=== PATIENT | female | born 1965 | race Caucasian/White ===

== ENCOUNTER 2016-08-07 13:27 | Outpatient (RCR) | payer OTHER ==
[~2016-08-07 13:27] MED LIST: AC325T PO; ALPR.25T PO; ALPR.5T PO; ALPR1TAB2 PO; ANTI-DEPRESSANT; ARIP10TA2 PO; BACL20TA PO; BENZ200C25 PO; CEFD300C3 PO; CITA20TA4 PO; CPR500T PO; CYCL10TA9 PO; DOXY100C2 PO; DULO60CA6 PO; FLT05NA16 NSEACH; FLUT16SP22 NS; GBPN100C PO; GBPN300C PO; HYDR-1231 PO; HYDR-3720 PO; HYDR1TAB PO; IBUP800T26 PO; LRT10T PO; MECL12.579 PO; MIRT15TA6 PO; NAPR-243 PO; OMEP20TA2 PO; OMG1KC PO; OXC10TCR PO; OXYC-471 PO; PANT40SU PO; PRD20T PO; PROP10TA8 PO; QTP100T PO; SOFO400T PO; TAMO20TA2 PO; TIZA2CAP PO; VENL37.563 PO; [UNRECOGNIZED DRUG - CODE] PO
--- OUTSIDE RECORDS SUMMARY | 2016-08-07 13:31 | XMS REPORT | Continuity of Care Document ---
Author Author [facility] Organization [facility] Address Unknown Phone Unavailable Care Team Providers Care Ic Designer Custom Name Role Phone [facility] Insurance Providers Payer Name Policy Number Subscriber Name Relationship [facility] [employer] [id number] Tita Harden 16 Self / Same As Patient Advance Directives Directive Response Recorded Date/Time Advance Directives No 06/04/14 1:34pm Health Care Power of Palliative Care Specialist No 06/04/14 1:34pm Organ Donor No 06/04/14 1:34pm Resuscitation Status Full Code 06/04/14 1:34pm Problems Medical Problems Problem Onset Date Status drainage from right breast lumpectomy incision Unknown Active Diarrhea Unknown Active Fracture of fifth metatarsal bone of left foot Unknown Active Encounter for medication refill Unknown Active Medications Medication Dose Route Sig Days/Qty Instructions Order Date Discontinued Date Status Meclizine Hcl (Antivert) 1 - 2 Each PO TID - QID PRN 30 Qty 07/29/11 08/02/11 Discontinued Omeprazole 20 Mg PO DAILY 09/17/11 01/22/13 Discontinued Gabapentin 100 Mg PO BEDTIME 09/18/11 06/09/12 Discontinued Meclizine Hcl (Antivert) 1 Each PO NEEDED 09/18/11 10/04/12 Discontinued [Anti-Depressant] DAILY 01/03/12 06/09/12 Discontinued Aripiprazole 10 Mg PO DAILY 06/09/12 10/04/12 Discontinued Fish Oil 1,000 Mg PO TWICE A DAY 06/09/12 10/04/12 Discontinued Propranolol Hcl 10 Mg PO 06/10/12 10/04/12 Discontinued Alprazolam 1 Tab PO THREE TIMES A DAY 10/04/12 08/11/13 Discontinued Doxycycline Hyclate (Vibramycin) 1 Each PO TWICE A DAY 10 Days 01/22/13 Discontinued Prednisone 40 Mg PO DAILY 5 Days 10/04/12 01/22/13 Discontinued Benzonatate (Tessalon Perles) 1 Each PO Q8HR PRN 30 Qty 10/04/1201/22 Discontinued Citalopram Hydrobromide 20 Mg PO D 01/22/13 08/11/13 Discontinued Quetiapine Fumarate 1 Tab PO BEDTIME 02/14/13 08/11/13 Discontinued Duloxetine HCl 1 Each PO DAILY 02/14/13 08/11/13 Discontinued Cyclobenzaprine HCl (Flexeril) 1 Each PO Q8HR PRN 15 Qty FOR MUSCLE SPASMS 02/14/13 08/11/13 Discontinued Naproxen 1 Each PO TID PRN 20 Qty 02/14/13 08/11/13 Discontinued Gabapentin 300 Mg PO TWICE A DAY 10 Qty As needed for neuropathy or paresthesias 02/25/13 08/11/13 Discontinued Tizanidine HCl 2 Mg PO DAILY 08/11/13 09/28/13 Discontinued Acetaminophen 325 Mg PO NEEDED 08/11/13 09/28/13 Discontinued Acetaminophen/Hydrocodone Bitart 1-2 Each PO Q4 - 6H PRN PAIN IN TO [facility]. 08/15/13 09/28/13 Discontinued Cefdinir (Omnicef) 1 Each PO TWICE A DAY 14 Qty 08/26/13 09/28/13 Discontinued Cyclobenzaprine HCl (Flexeril) 10 Mg PO THREE TIMES A DAY 09/28/13 Active Alprazolam 1 Mg PO THREE TIMES A DAY 09/28/13 Active Loratadine 10 Mg PO DAILY 09/28/13 Active Fluticasone Propionate 16 Gm NS 09/28/13 09/28/13 Discontinued Ibuprofen (Motrin) 800 Mg PO q8h PRN PAIN 03/07/14 Active Baclofen (Lioresal) 20 Mg PO THREE TIMES A DAY 03/07/14 Active Tamoxifen Citrate 20 Mg PO DAILY 03/07/14 Active Fluticasone Propionate 1 [place] NSEACH DAILY 03/07/14 Active Venlafaxine Hcl 37.5 Mg PO TWICE A DAY 03/07/14 03/20/14 Discontinued Mirtazapine (Remeron) 0.5-1 Tab PO BEDTIME 06/01/14 Active Hydrocodone Bit/Acetaminophen 1-2 Tab PO EVERY 6 HOURS PRN PAIN 15 Qty 06/01/14 Active Acetaminophen/Hydrocodone Bitart ([place]) 1 Each PO Q4-6HR PRN PAIN 20 Qty 06/04/14 Active Social History Social History Problem Response Recorded Date/Time Alcohol Use Denies Use 06/04/2014 1:34pm Recreational Drug Use N SMOKER-PACK PER DAY 06/04/2014 1:34pm Smoking Status Current Everyday Smoker 06/04/2014 1:34pm Query Response Start Date Stop Date Smoking Status Current Everyday Smoker Hospital Discharge Instructions No hospital discharge instructions. Plan of Care No plan of care. Functional Status No functional status results. Allergies, Adverse Reactions, Alerts Allergen Type Severity Reaction Status Last Updated morphine Allergy Severe LARGE HIVES ON LEFT FOREARM. ITCHING OF NOSE. Active 08/15/13 Codeine Allergy Unknown Active 03/12/14 Immunizations Name Given Type Date of Pneumonia Vaccine 10/04/10 Historical Date of Influenza Vaccine 07/04/11 Historical Vital Signs Acute Vital Signs Vital Response Date/Time Temperature (Fahrenheit) 99.4 degrees F (97.6 - 99.5) Temperature (Calculated Celsius) 37.84476 degrees C (36.4 - 37.5) Temperature Source Temporal Pulse Rate (adult) 88 bpm (60 - 90) Respiratory Rate 20 bpm (12 - 24) O2 Sat by Pulse Oximetry 94 % (88 - 100) Blood Pressure 119/80 mm Hg Pain Pain Intensity 3 Height (Feet) 5 feet Height (Inches) 7 inches Height (Calculated Centimeters) 170.976664 cm Weight (Pounds) 185 pounds Weight (Calculated Kilograms) 83.920704 kilograms Calculated BMI 28.97 Results Test Source Date Result Interp. Ref. Range Comments Acetaminophen Screen August 02, 2011 10:57am NEGATIVE - APAP= ACETAMINOPHEN/PARACETAMOL Alanine Aminotransferase (ALT/SGPT) March 28, 2014 1:30pm 69 U/L H 30-65 Albumin March 28, 2014 1:30pm 3.5 G/DL N 3.4-5.0 Alkaline Phosphatase March 28, 2014 1:30pm 95 U/L N 50-136 Alpha Fetoprotein January 08, 2014 3:37pm 3.3 NG/ML - INTERPRETIVE DATAPatients who have received Oncoscinct CR/OV tracer may develop human anti-mouse antibodies that cause interference in this test and cause falsely elevated results. Please advise laboratory if this is a possibility so that alternate testing procedures may be used. Aspartate Amino Transf (AST/SGOT) March 28, 2014 1:30pm 52 U/L H 15-37 BUN/Creatinine Ratio March 28, 2014 1:30pm 10 - Band Neutrophils September 28, 2013 6:17pm 2 % - Basophils # (Auto) March 28, 2014 1:30pm 0.0 10^3/uL N 0.0-0.1 Basophils % (Manual) September 28, 2013 6:17pm 0 % - Basophils (%) (Auto) March 28, 2014 1:30pm 1 % N 0-10 Blood Urea Nitrogen March 28, 2014 1:30pm 8 MG/DL N 7-18 Calcium Level March 28, 2014 1:30pm 8.9 MG/DL N 8.5-10.1 Carbon Dioxide Level March 28, 2014 1:30pm 24 MMOL/L N 21-32 Chloride Level March 28, 2014 1:30pm 104 MMOL/L N 101-110 Cholesterol Level May 13, 2012 12:15pm 213 MG/DL H -200 PATIENT HAS ALREADY COLLECTE DRUG SCREEN Creatinine March 28, 2014 1:30pm 0.8 MG/DL N 0.6-1.3 D-Dimer August 02, 2011 11:08am 6.64 UG/ML H 0.00-0.49 Eosinophils # (Auto) March 28, 2014 1:30pm 0.1 10^3/uL N 0.0-0.3 Eosinophils % (Manual) September 28, 2013 6:17pm 1 % - Eosinophils (%) (Auto) March 28, 2014 1:30pm 2 % N 0-10 Glucose Level March 28, 2014 1:30pm 89 MG/DL N 74-106 HDL Cholesterol May 13, 2012 12:15pm 57 MG/DL N 35-60 PATIENT HAS ALREADY COLLECTE DRUG SCREEN Hematocrit March 28, 2014 1:30pm 44 % N 35-52 Hemoglobin March 28, 2014 1:30pm 15.3 G/DL N 11.5-16.0 Hepatitis A IgM Antibody September 13, 2013 2:53pm NR - If the result of the HEP A IgM antibody is Equivocal, thetest should be repeated in 1-2 weeks. (05-01-13) Hepatitis B Core IgM Antibody September 13, 2013 2:53pm NR - If the result of the HEP B Core IgM antibody is Equivocal,the test should be repeated in 1-2 weeks. (05-01-13) Hepatitis B Surface Antigen September 13, 2013 2:53pm NR - BLOOD IN LAB / SHORT DRAW GOLD AND EXTRA RED TOP IN LAB! Hepatitis C Antibody September 13, 2013 2:53pm REACTIVE H - THIS IS A REPORTABLE DISEASE. POSITIVE RESULTS WILL BEREPORTED TO THE [facility]. IT SHOULD BE NOTED THAT THE ASSAY PERFOMANCE CHARACTERISTICS OF THIS ASSAY HAVE NOT BEEN ESTABLISHED FOR IMMUNOCOMPROMISED PATIENTS OR ON CORD BLOOD, SPECIMENS, INFANTS OR CHILDREN (<12 YEARS OF AGE). Iron Level May 13, 2012 12:15pm 117 UG/DL N 50-175 PATIENT HAS ALREADY COLLECTE DRUG SCREEN LDL Cholesterol May 13, 2012 12:15pm 110 MG/DL N 0-129 PATIENT HAS ALREADY COLLECTE DRUG SCREEN Lymphocytes # (Auto) March 28, 2014 1:30pm 1.6 X 10^3 N 1.0-4.0 Lymphocytes % (Manual) September 28, 2013 6:17pm 11 % - Lymphocytes (%) (Auto) March 28, 2014 1:30pm 24 % N 12-44 Mean Corpuscular Hemoglobin March 28, 2014 1:30pm 30 PG N 25-34 Mean Corpuscular Hemoglobin Concent March 28, 2014 1:30pm 35 G/DL N 32- 36 Mean Corpuscular Volume March 28, 2014 1:30pm 87 FL N 80-99 Mean Platelet Volume March 28, 2014 1:30pm 9.6 FL N 7.4-10.4 Metamyelocytes % September 28, 2013 6:17pm 1 % - Methadone Level May 13, 2012 12:15pm NEG - Monocytes # (Auto) March 28, 2014 1:30pm 0.8 X 10^3 N 0.0-1.0 Monocytes % (Manual) September 28, 2013 6:17pm 4 % - Monocytes (%) (Auto) March 28, 2014 1:30pm 12 % N 0-12 Neutrophils # (Auto) March 28, 2014 1:30pm 4.1 X 10^3 N 1.8-7.8 Neutrophils % (Manual) September 28, 2013 6:17pm 73 % - Neutrophils (%) (Auto) March 28, 2014 1:30pm 62 % N 42-75 Opiates Screen May 13, 2012 12:15pm NEG - Platelet Count March 28, 2014 1:30pm 321 10^3/uL N 130-400 Potassium Level March 28, 2014 1:30pm 4.1 MMOL/L N 3.6-5.0 Reactive Lymphocytes September 28, 2013 6:17pm 8 % - Red Blood Count March 28, 2014 1:30pm 5.12 10^6/uL N 4.35-5.85 Red Cell Distribution Width March 28, 2014 1:30pm 13.9 % N 10.0-14.5 Sodium Level March 28, 2014 1:30pm 136 MMOL/L N 135-145 TSH [place] Testing May 13, 2012 12:15pm 1.05 UIU/ML N 0.34-5.60 PATIENT HAS ALREADY COLLECTE DRUG SCREEN Thyroid Stimulating Hormone (TSH) August 02, 2011 11:08am 0.90 UIU/ML N 0.34-5.60 Total Bilirubin March 28, 2014 1:30pm 0.3 MG/DL N 0.0-1.0 Total Creatine Kinase October 04, 2012 3:38pm 55 U/L N 1-159 Total Protein March 28, 2014 1:30pm 8.2 G/DL N 6.4-8.2 Toxic Granulation September 28, 2013 6:17pm 1+ - Triglycerides Level May 13, 2012 12:15pm 230 MG/DL H 30.0-150.0 PATIENT HAS ALREADY COLLECTE DRUG SCREEN Troponin I August 02, 2011 11:08am < 0.10 NG/ML 0.00-0.10 Ur Tricyclic Antidepressants Screen August 02, 2011 10:57am NEGATIVE - Urine Acetaminophen Level May 13, 2012 12:15pm NEG - Urine Amphetamines Screen May 13, 2012 12:15pm NEG - Urine Bacteria August 02, 2011 10:57am NONE - Has specimen been collected/obtained? YSpecimen Description CLEAN CATCH Urine Barbiturates Screen May 13, 2012 12:15pm NEG - Urine Benzodiazepines Screen May 13, 2012 12:15pm POSITIVE H - CONFIRMATORY TESTING WILL BE PERFORMED ONLY UPON REQUEST.IF A CONFIRMATION IS NEEDED, PLESE ORDER THE FOLLOWING TEST. "BENZO CON" OR CONTACT LAB. FOOTNOTE ADDED ON [id number] AT 2128 BY [facility] Urine Bilirubin August 02, 2011 10:57am NEGATIVE - Has specimen been collected/obtained? YSpecimen Description CLEAN CATCH Urine Casts August 02, 2011 10:57am NONE - Has specimen been collected/obtained? YSpecimen Description CLEAN CATCH Urine Clarity August 02, 2011 10:57am CLEAR - Has specimen been collected/obtained? YSpecimen Description CLEAN CATCH Urine Cocaine Screen May 13, 2012 12:15pm NEG - Urine Color August 02, 2011 10:57am YELLOW - Has specimen been collected/obtained? YSpecimen Description CLEAN CATCH Urine Crystals August 02, 2011 10:57am NONE - Has specimen been collected/obtained? YSpecimen Description CLEAN CATCH Urine Culture Indicated August 02, 2011 10:57am NO - Has specimen been collected/obtained? YSpecimen Description CLEAN CATCH Urine Drug Screen Other May 13, 2012 12:15pm POSITIVE H - Interpretative data is available online at:[email or web address] Enter Test Number:[id number] URINE DRUG SCREEN FOR MEDICAL PURPOSES ONLY. Urine Glucose (UA) August 02, 2011 10:57am NEGATIVE - Has specimen been collected/obtained? YSpecimen Description CLEAN CATCH Urine Ketones August 02, 2011 10:57am NEGATIVE - Has specimen been collected/obtained? YSpecimen Description CLEAN CATCH Urine Leukocyte Esterase August 02, 2011 10:57am NEGATIVE - Has specimen been collected/obtained? YSpecimen Description CLEAN CATCH Urine Marijuana (THC) May 13, 2012 12:15pm POSITIVE H - CONFIRMATORY TESTING WILL BE PERFORMED ONLY UPON REQUEST.IF A CONFIRMATION IS NEEDED, PLESE ORDER THE FOLLOWING TEST. "THC GC/MS" OR CONTACT LAB. FOOTNOTE [facility] [id number] [facility] INTERPRETIVE DATA No normal range is available for random urine creatinine. Values are affected by hydration and kidney function of the patient. Urine Methamphetamines Screen August 02, 2011 10:57am NEGATIVE - Urine Mucus August 02, 2011 10:57am NEGATIVE - Has specimen been collected/obtained? YSpecimen Description CLEAN CATCH Urine Nitrite August 02, 2011 10:57am NEGATIVE - Has specimen been collected/obtained? YSpecimen Description CLEAN CATCH Urine Opiates Screen August 02, 2011 10:57am NEGATIVE - Urine Phencyclidine (PCP) Level May 13, 2012 12:15pm NEG - Urine Phencyclidine Screen August 02, 2011 10:57am NEGATIVE - Phencyclidine testing by this method can showcross-reactivity with several common medications such as venlafaxine, dextromethorphan, and diphenhydramine. Submission of any positive sample for confirmatory testing is recommended. Urine Propoxyphene Screen May 13, 2012 12:15pm NEG - Urine Protein August 02, 2011 10:57am NEGATIVE - Has specimen been collected/obtained? YSpecimen Description CLEAN CATCH Urine RBC August 02, 2011 10:57am NONE /HPF - Has specimen been collected/obtained? YSpecimen Description CLEAN CATCH Urine Specific [place] August 02, 2011 10:57am 1.010 L - Has specimen been collected/obtained? YSpecimen Description CLEAN CATCH Urine Squamous Epithelial Cells August 02, 2011 10:57am 5-10 - Has specimen been collected/obtained? YSpecimen Description CLEAN CATCH Urine Urobilinogen August 02, 2011 10:57am NORMAL MG/DL - Has specimen been collected/obtained? YSpecimen Description CLEAN CATCH Urine WBC August 02, 2011 10:57am NONE /HPF - Has specimen been collected/obtained? YSpecimen Description CLEAN CATCH Urine pH August 02, 2011 10:57am 7.0 - Has specimen been collected/ obtained? YSpecimen Description CLEAN CATCH VLDL Cholesterol May 13, 2012 12:15pm 46 MG/DL H 5-40 PATIENT HAS ALREADY COLLECTE DRUG SCREEN Vitamin B12 Level May 13, 2012 12:15pm 352 PG/ML - Vitamin D 25-Hydroxy May 13, 2012 12:15pm 14 L NG/ML - White Blood Count March 28, 2014 1:30pm 6.6 10^3/uL N 4.3-11.0 Urine Creatinine (Tox) May 13, 2012 12:15pm 19 MG/DL - LOW URINE CREATININE OR SPECIFIC GRAVITY (1.003) MAY BE SEENIN SPECIMENS A RESULT OF TAMPERING, DILUTION OR DELIBERATE OVER HYDRATION BY SUBJECT OR WHEN NON-URINE HAS BEEN SUBSTITUTED. SINCE DILUTE SPECIMENS MAY BE ASSOCIATED WITH FALSE NEGATIVE RESULTS, A REPEAT STUDY MAY BE INDICATED. FOOTNOTE ADDED ON [id number] AT 2128 BY [facility] Estimat Glomerular Filtration Rate March 28, 2014 1:30pm > 60 - GFR INTERPRETIVE DATA UNITS FOR ESTIMATED GFR (eGFR): mL/min/1.73 M2 REFERENCE RANGE FOR ESTIMATED GFR (eGFR) eGFR NORMAL eGFR >60 MODERATELY DECREASED eGFR 30-59 SEVERLY DECREASED eGFR 15-29 KIDNEY FAILURE <15 (OR DIALYSIS) Urine Methadone Screen August 02, 2011 10:57am NEGATIVE - Urine Ethyl Alcohol Screen May 13, 2012 12:15pm NEG - Interpretative data is available online at:[email or web address] Enter Test Number:[id number] Urine Salicylate Screen May 13, 2012 12:15pm NEG - Urine Cannabinoids Screen August 02, 2011 10:57am POSITIVE H - Hepatitis C Antibody Index September 13, 2013 2:53pm >11.00 INDEX H - HCV INDEX INTERPRETIVE DATAINDEX PERCENT CONFIRMED POSITIVE 1.0 - 3.99 25% 4.0 - 7.99 77% 8.0 - 10.99 73% >11.0 99.9% Positive results with an index of >11.0 are accepted by CDC as having anti-HCV status with no need of confirmation. Urine RBC (Auto) August 02, 2011 10:57am NEGATIVE - Has specimen been collected/obtained? YSpecimen Description CLEAN CATCH MRSA Screen Nasal March 23, 2014 7:55am MRSA not isolated Urine Culture Urine-Clean Catch December 28, 2010 1:34pm Procedures No known history of procedures. Encounters Encounter Location Date/Time Departed Emergency Room Via [facility] 06/04/14 12:56pm Departed Emergency Room Via [facility] 06/01/14 9:06pm Discharged Recurring Via [facility] 05/09/14 1:19pm Recent Diagnosis
== END 2016-11-05 | disposition home or self-care (01) ==
LOC: ONC 13:27
PROVIDERS: ATTEND Internal Medicine Hematology & Oncology
DX: C50.911 Malignant neoplasm of unspecified site of right female breast (principal); B18.2 Chronic viral hepatitis C; F41.9 Anxiety disorder, unspecified; F17.210 Nicotine dependence, cigarettes, uncomplicated; Z79.810 Long term (current) use of selective estrogen receptor modulators (SERMs); Z17.0 Estrogen receptor positive status [ER+]; Z45.2 Encounter for adjustment and management of vascular access device
CPT/HCPCS: 96523

== ENCOUNTER 2016-12-07 14:49 | Outpatient (RCR) | payer OTHER ==
--- OUTSIDE RECORDS SUMMARY | 2016-11-18 13:05 | XMS REPORT | Continuity of Care Document ---
Author Author [facility] Organization [facility] Address Unknown Phone Unavailable Care Team Providers Care Desulfurizer Machine Name Role Phone [facility] PCP Insurance Providers Payer Name Policy Number Subscriber Name Relationship [facility] [employer] [id number] Tita Harden 16 Self / Same As Patient Advance Directives Directive Response Recorded Date/Time Advance Directives No 06/04/14 1:34pm Health Care Power of Specimen Processor No 06/04/14 1:34pm Organ Donor No 06/04/14 [...] Q4 - 6H PRN PAIN IN TO [facility]. 08/15/13 09/28/13 Discontinued Cefdinir (Omnicef) 1 [...] PO DAILY 03/07/14 Active Fluticasone Propionate 1 [place] NSEACH DAILY 03/07/14 Active Venlafaxine Hcl 37.5 Mg PO TWICE A DAY 03/07/14 03/20/14 Discontinued Mirtazapine (Remeron) 0.5-1 Tab PO BEDTIME 06/01/14 Active Hydrocodone Bit/Acetaminophen 1-2 Tab PO EVERY 6 HOURS PRN PAIN 15 Qty 06/01/14 Active Acetaminophen/Hydrocodone Bitart ([place]) 1 Each PO Q4-6HR PRN PAIN 20 [...] F (97.6 - 99.5) Temperature (Calculated Celsius) 37.13883 degrees C (36.4 - 37.5) Temperature Source Temporal Pulse Rate (adult) 88 bpm (60 - 90) Respiratory Rate 20 bpm (12 - 24) O2 Sat by Pulse Oximetry 94 % (88 - 100) Blood Pressure 119/80 mm Hg Pain Pain Intensity 3 Height (Feet) 5 feet Height (Inches) 7 inches Height (Calculated Centimeters) 170.116796 cm Weight (Pounds) 185 pounds Weight (Calculated Kilograms) 83.424953 kilograms Calculated BMI 28.97 Results Test Source [...] DISEASE. POSITIVE RESULTS WILL BEREPORTED TO THE [facility]ALTH DEPARTMENT. IT SHOULD BE NOTED THAT [...] 2014 1:30pm 136 MMOL/L N 135-145 TSH [place] Testing May 13, 2012 12:15pm 1.05 UIU/ML [...] CON" OR CONTACT LAB. FOOTNOTE ADDED ON [id number] AT 2128 BY [facility] Urine Bilirubin August 02, 2011 10:57am NEGATIVE [...] H - Interpretative data is available online at:[email or web address] Enter Test Number:[id number] URINE DRUG SCREEN FOR MEDICAL PURPOSES ONLY. [...] GC/MS" OR CONTACT LAB. FOOT[facility] [id number] [facility] INTERPRETIVE DATA No normal range [...] collected/obtained? YSpecimen Description CLEAN CATCH Urine Specific [place] August 02, 2011 10:57am 1.010 L - [...] STUDY MAY BE INDICATED. FOOTNOTE ADDED ON [id number] AT 2128 BY [facility] Estimat Glomerular Filtration Rate March 28, 2014 [...] NEG - Interpretative data is available online at:[email or web address] Enter Test Number:[id number] Urine Salicylate Screen May 13, 2012 12:15pm [...] Encounter Location Date/Time Departed Emergency Room Via [facility] 06/04/14 12:56pm Departed Emergency Room Via [facility] 06/01/14 9:06pm Discharged Recurring Via [facility] 05/09/14 1:19pm Recent Diagnosis
[2016-12-07 15:29] LABS: BASOPHILS % (AUTO) 0 % (0-10); EOSINOPHILS # (AUTO) 0.1 10^3/uL (0.0-0.3); EOSINOPHILS % (AUTO) 1 % (0-10); LYMPHOCYTES # (AUTO) 2.3 X 10^3 (1.0-4.0); LYMPHOCYTES % (AUTO) 27 % (12-44); MEAN CORPUSCULAR HEMOGLOBIN 29 PG (25-34); MEAN CORPUSCULAR HGB CONC 34 G/DL (32-36); MEAN CORPUSCULAR VOLUME 87 FL (80-99); MEAN PLATELET VOLUME 9.4 FL (7.4-10.4); MONOCYTES # (AUTO) 0.7 X 10^3 (0.0-1.0); MONOCYTES % (AUTO) 8 % (0-12); NEUTROPHILS # (AUTO) 5.4 X 10^3 (1.8-7.8); NEUTROPHILS % (AUTO) 64 % (42-75); PLATELET COUNT 372 10^3/uL (130-400); RED BLOOD COUNT 4.66 10^6/uL (4.35-5.85); RED CELL DISTRIBUTION WIDTH 14.9 % (10.0-14.5); WHITE BLOOD COUNT 8.5 10^3/uL (4.3-11.0)
[2016-12-07 16:23] LABS: ALANINE AMINOTRANSFERASE 13 U/L (0-55); ANION GAP 8 MMOL/L (5-14); ASPARTATE AMINO TRANSFERASE 15 U/L (5-34); BILIRUBIN,TOTAL 0.3 MG/DL (0.1-1.0); BLOOD UREA NITROGEN 8 MG/DL (7-18); BUN/CREATININE RATIO 11; CARBON DIOXIDE 23 MMOL/L (21-32); CHLORIDE 109 MMOL/L (98-107); CREATININE SERUM 0.76 MG/DL (0.60-1.30); GFR ESTIMATED > 60; GLUCOSE 86 MG/DL (70-105); POTASSIUM 3.9 MMOL/L (3.6-5.0); SODIUM 140 MMOL/L (135-145); TOTAL PROTEIN 7.1 G/DL (6.4-8.2)
[2016-12-23] MEDS ORDERED: TRAM50TA2 PO (09:45)
== END 2017-02-16 | disposition home or self-care (01) ==
LOC: ONC 14:49
PROVIDERS: ATTEND Internal Medicine Hematology & Oncology
DX: C50.911 Malignant neoplasm of unspecified site of right female breast (principal); B18.2 Chronic viral hepatitis C; F41.9 Anxiety disorder, unspecified; F17.210 Nicotine dependence, cigarettes, uncomplicated; Z79.810 Long term (current) use of selective estrogen receptor modulators (SERMs); Z17.0 Estrogen receptor positive status [ER+]; Z45.2 Encounter for adjustment and management of vascular access device
CPT/HCPCS: 36591; 80053; 85025; 96523; 99213

== ENCOUNTER 2016-12-17 05:41 | Outpatient (CLI) | payer OTHER ==
[~2016-12-17] VITALS: Ht 167.6 cm; Wt 81.6 kg
--- OUTSIDE RECORDS SUMMARY | 2016-12-17 05:46 | XMS REPORT | Continuity of Care Document ---
Author Author [facility] Organization [facility] Address Unknown Phone Unavailable Care Team Providers Care Radio Station Engineer Name Role Phone [facility] PCP Insurance Providers Payer Name Policy Number Subscriber Name Relationship [facility] [employer] [id number] Tita Harden 16 Self / Same As Patient Advance Directives Directive Response Recorded Date/Time Advance Directives No 06/04/14 1:34pm Health Care Power of Yarn Inspector No 06/04/14 1:34pm Organ Donor No 06/04/14 [...] Q4 - 6H PRN PAIN IN TO [facility]. 08/15/13 09/28/13 Discontinued Cefdinir (Omnicef) [...] PO DAILY 03/07/14 Active Fluticasone Propionate 1 [place] NSEACH DAILY 03/07/14 Active Venlafaxine Hcl 37.5 Mg PO TWICE A DAY 03/07/14 03/20/14 Discontinued Mirtazapine (Remeron) 0.5-1 Tab PO BEDTIME 06/01/14 Active Hydrocodone Bit/Acetaminophen 1-2 Tab PO EVERY 6 HOURS PRN PAIN 15 Qty 06/01/14 Active Acetaminophen/Hydrocodone Bitart ([place]) 1 Each PO Q4-6HR PRN PAIN 20 [...] F (97.6 - 99.5) Temperature (Calculated Celsius) 37.30165 degrees C (36.4 - 37.5) Temperature Source Temporal Pulse Rate (adult) 88 bpm (60 - 90) Respiratory Rate 20 bpm (12 - 24) O2 Sat by Pulse Oximetry 94 % (88 - 100) Blood Pressure 119/80 mm Hg Pain Pain Intensity 3 Height (Feet) 5 feet Height (Inches) 7 inches Height (Calculated Centimeters) 170.191759 cm Weight (Pounds) 185 pounds Weight (Calculated Kilograms) 83.269084 kilograms Calculated BMI 28.97 Results Test Source [...] DISEASE. POSITIVE RESULTS WILL BEREPORTED TO THE [facility]ALTH DEPARTMENT. IT SHOULD BE [...] 2014 1:30pm 136 MMOL/L N 135-145 TSH [place] Testing May 13, 2012 12:15pm 1.05 UIU/ML [...] CON" OR CONTACT LAB. FOOTNOTE ADDED ON [id number] AT 2128 BY [facility] Urine Bilirubin August 02, 2011 10:57am NEGATIVE [...] H - Interpretative data is available online at:[email or web address] Enter Test Number:[id number] URINE DRUG SCREEN FOR MEDICAL PURPOSES ONLY. [...] GC/MS" OR CONTACT LAB. FO[facility] [id number] [facility]PRETIVE DATA No normal [...] collected/obtained? YSpecimen Description CLEAN CATCH Urine Specific [place] August 02, 2011 10:57am 1.010 L - [...] STUDY MAY BE INDICATED. FOOTNOTE ADDED ON [id number] AT 2128 BY [facility] Estimat Glomerular Filtration Rate March 28, 2014 [...] NEG - Interpretative data is available online at:[email or web address] Enter Test Number:[id number] Urine Salicylate Screen May 13, 2012 12:15pm [...] Encounter Location Date/Time Departed Emergency Room Via [facility] 06/04/14 12:56pm Departed Emergency Room Via [facility] 06/01/14 9:06pm Discharged Recurring Via [facility] 05/09/14 1:19pm Recent Diagnosis
== END 2016-12-17 11:08 ==
LOC: PREOP 05:41
PROVIDERS: ATTEND Surgery
DX: Z01.818 Encounter for other preprocedural examination (principal); C50.911 Malignant neoplasm of unspecified site of right female breast

== ENCOUNTER 2016-12-23 07:51 | Day surgery (SDC) | payer OTHER ==
[~2016-12-23] VITALS: Ht 167.6 cm; Wt 81.6 kg
--- NOTE | 2016-12-23 08:01 | History & Physicial ---
History of Present Illness History of Present Illness Reason for visit/HPI For removal of infusaport Date of Admission I consulted on this patient on 12/23/16 07:59 Attending Physician Bry Acosta MD Admitting Physician Zena Sanchez DO Consult Allergies and Home Medications Allergies Coded Allergies: morphine (Unverified Allergy, Severe, LARGE HIVES ON LEFT FOREARM. ITCHING OF NOSE., 08/15/13) IV MORPHINE WAS GIVEN TO PATIENT FOR PAIN AT IV SITE IN PTS LEFT HAND. 12 MINUTES AFTER IV MORPHINE WAS GIVEN PT C/O HER NOSE ITCHING. THIS RN NOTICED PT HAD REDNESS AT IV SITE AND HAD 5 LARGE HIVES ON LEFT FOREARM. PT DENIED ANY SHORTNESS OF BREATH OR DIFFICULTY BREATHING. NO HIVES OR RASH NOTED ANY WHERE ELSE ON PTS BODY. NO ITCHING NOTED ANYWHERE ELSE BUT PTS NOSE. THIS RN NOTIFIED ANESTHESIA. 25MG BENADRYL GIVEN PO PER ANESTHESIA'S ORDERS DUE TO PTS IV INFILTRATING AND ANESTHESIA WAS UNABLE TO RESTART IV. 10 MINUTES AFTER PO BENADRYL WAS GIVEN PTS HIVES WERE ABOUT GONE AND PTS STATED HER NOSE DID NOT ITCH. codeine (Verified Allergy, Unknown, 03/12/14) Home Medications Tamoxifen Citrate 20 Mg Tablet, 20 MG PO DAILY, (Reported) Past Hzxfugx-Pdpqen-Guwkqy Hx Patient Social History Employed/Student: unemployed Smoking Status: Current Everyday Smoker Type Used: Cigarettes Recent Foreign Travel: No Contact w/other who traveled: No Recent Hopitalizations: No Immunizations Up To Date Date of Pneumonia Vaccine: Oct 04, 2010 Date of Influenza Vaccine: Jul 04, 2011 Seasonal Allergies Seasonal Allergies: Yes Surgeries HX Surgeries: Yes (RIGHT BREAST LUMPECTOMY, RIGHT KNEE SCOPE, port) Surgeries: Breast, Hysterectomy, Lumpectomy Respiratory Hx Respiratory Disorders: Yes Cardiovascular Hx Cardiovascular Disorders: No Neurological Hx Neurological Disorders: No Reproductive System Hx Reproductive Disorders: No Sexually Transmitted Disease: Yes (HPV) HIV/AIDS: No Female 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 PSYCHOLOGIST CLINICAL Hx: Hysterectomy Genitourinary Hx Genitourinary Disorders: Yes (HX KIDNEY INFECTIONS) Gastrointestinal Hx Gastrointestinal Disorders: Yes Gastrointestinal Disorders: Gastroesophageal Reflux Musculoskeletal Hx Musculoskeletal Disorders: Yes (NECK) Musculoskeletal Disorders: Chronic Back Pain Endocrine Hx Endocrine Disorders: No HEENT HX ENT Disorders: Yes (FALSE TEETH, READING GLASSES) Loss of Vision: Bilateral Hearing Impairment: Denies Cancer Hx Cancer: Yes (HPV) Cancer: Breast, Uterine Psychosocial Hx Psychiatric Problems: Yes (TAKES XANAX) Behavioral Health Disorders: Anxiety, Depression Integumentary HX Skin/Integumentary Disorder: No Blood Transfusions Hx Blood Disorders: No Adverse Reaction to a Blood Tr: No Constitutional: no symptoms reported EENTM: no symptoms reported Respiratory: no symptoms reported Cardiovascular: no symptoms reported Gastrointestinal: see HPI Genitourinary: see HPI Musculoskeletal: see HPI Physical Exam Vital Signs Capillary Refill : General Appearance: No Apparent Distress HEENT: TMs Normal Neck: Normal Inspection Respiratory: Lungs Clear Cardiovascular: Regular Rate, Rhythm Gastrointestinal: No Organomegaly, Non Tender, Soft Skin: Warm/Dry Comments Post-op changes over the right breast Assessment/Plan Assessment and Plan R breast carcinoma. For removal of infusaport Problems: BRY ACOSTA MD Dec 23, 2016 8:01 am
--- NOTE | 2016-12-23 08:02 | Progress Note-Pre Operative ---
Pre-Operative Progress Note H&P Reviewed The H&P was reviewed, patient examined and no changes noted. Date H&P Reviewed: Dec 23, 2016 Time H&P Reviewed: 08:01 Pre-Operative Diagnosis: Treated right breast carcinoma BRY ACOSTA MD Dec 23, 2016 8:02 am
[2016-12-23] MEDS ORDERED: NS (IVPB) 50 ML ONE (08:10)
[2016-12-23] MEDS ORDERED: ceFAZolin 1,000 MG (ANCEF) VIAL ONE (08:10)
[2016-12-23] MEDS ORDERED: ceFAZolin 1 GM/NS 50 ML IVPB IV ONE ×2 (08:30)
[2016-12-23] MEDS ORDERED: BUP/EPI 0.25% 1:200,000 (MARCAINE) 30 ML VIAL ONE (09:07)
[2016-12-23] MEDS ORDERED: proPOfol 200 MG/20 ML (DIPRIVAN) VIAL IV ONE (09:13)
[2016-12-23] MEDS ORDERED: LIDOCAINE PF 2% 10 ML (XYLOCAINE) AMP ONE (09:13)
[2016-12-23] MEDS ORDERED: MIDAZOLAM 2 MG/2 ML (VERSED) VIAL ONE ×2 (09:13→09:30)
[2016-12-23] MEDS ORDERED: LACTATED RINGERS 1,000 ML IV PRN (09:15)
[2016-12-23 09:29] VITALS: BP 134/96
--- NOTE | 2016-12-23 09:44 | Progress Note-Post Operative ---
Post-Operative Progess Note Pre-Operative Diagnosis Treated right breast carcinoma Post-Operative Diagnosis SAME Post-Op Procedure Note Date of Procedure: Dec 23, 2016 Name of Procedure: removal of Bvmoab-c-Ypbx Anesthesia Type sedation with local BRY ACOSTA MD Dec 23, 2016 9:44 am
[2016-12-23] MEDS ORDERED: TRAM50TA2 PO (09:45)
--- NOTE | 2016-12-23 09:46 | Discharge Inst-Simple/Standard ---
Discharge Inst-Standard Discharge Medications New, Converted or Re-Newed RX: RX on Chart Patient Instructions/Follow Up Plan of Care/Instructions/FU: follow-up if needed Activity as Tolerated: Yes Discharge Diet: No Restrictions BRY ACOSTA MD Dec 23, 2016 9:46 am
--- NOTE | 2016-12-23 09:58 | PROCEDURE REPORT ---
PROCEDURE PHYSICIAN: BRY ACOSTA DATE OF PROCEDURE: 12/23/2016 PREOPERATIVE DIAGNOSES: 1. Treated right breast cancer. 2. Unused Fblpgt-i-Nwei. POSTOPERATIVE DIAGNOSES: 1. Treated right breast cancer. 2. Unused Sqoikm-m-Thqq. OPERATION: Removal of Rapbfz-y-Hxis. SURGEON: Dr. Acosta. ANESTHESIA: Sedation with local. BLOOD LOSS: Minimal. FLUIDS: 400 mL of crystalloids. TYPE OF WOUND: Type I (clean wound). INDICATION FOR THE PROCEDURE: This lady has completed adjuvant chemotherapy following lumpectomy for breast carcinoma. After an adequate discussion with her oncologist, it was felt reasonable to remove the Vwlclq-c-Yrzj. Informed consent was obtained after reviewing the procedure in detail. DESCRIPTION OF PROCEDURE: She was placed supine on the operative table and our anesthesiologist administered sedation, monitoring her vital signs. A gram of Ancef was administered intravenously as prophylaxis against wound infection. Right infraclavicular area was prepared and draped in the usual sterile manner. Local anesthesia was achieved using 0.25% Marcaine with epinephrine. A second incision was made along the previous scar and the Nvdhql-i-Wwdx removed without risking air embolism. The incision was then closed using 3-0 Vicryl for the subcutaneous tissue and 4-0 Vicryl for skin, in a subcuticular fashion. She tolerated the procedure well and was taken back to the nursing area in a stable condition. Job ID: [id number] Dictated Date: 12/23/2016 09:43:40 Caddy Date: 12/23/2016 09:52:46 / leandra ADHIKARI
[2016-12-23] MEDS ORDERED: ONDANSETRON 4 MG/2 ML (SDV) Z0FRAN IVP PRN (10:00)
[2016-12-23] MEDS ORDERED: fentaNYL INJECTION 100 MCG/2 ML AMP IVP PRN (10:00)
[2016-12-23 10:10] VITALS: BP 129/76
[2016-12-23 10:40] VITALS: BP 124/76
--- OUTSIDE RECORDS SUMMARY | 2016-12-27 04:41 | XMS REPORT | Continuity of Care Document ---
Author Author [facility] Organization [facility] Address Unknown Phone Unavailable Allergies Active Description Code Type Severity Reaction Onset Reported/Identified Relationship to Patient Clinical Status Yes morphine [id number] Drug Allergy Severe LARGE HIVES ON 08/15/2013 Yes codeine [id number] Drug Allergy Unknown N/A 03/12/2014 Medications Problems Date Dx Coded Attending Type Code Diagnosis Diagnosed By 12/28/2010 Ot 590.10 AC PYELONEPHRITIS NOS 12/28/2010 Ot 787.03 VOMITING ALONE 07/29/2011 Ot 780.2 SYNCOPE AND COLLAPSE 07/29/2011 Ot 780.4 DIZZINESS AND GIDDINESS 08/04/2011 Ot 305.1 TOBACCO USE DISORDER 08/04/2011 Ot 305.20 CANNABIS ABUSE-UNSPEC 08/04/2011 Ot 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 BILTRAL ARTERY OCCLUSION WO CEREBRA 08/04/2011 Ot 780.2 SYNCOPE AND COLLAPSE 08/04/2011 Ot 784.0 HEADACHE 08/04/2011 Ot 790.99 BLOOD EXAM - OTH NONSPECIFIC FINDINGS 10/04/2012 Ot 466.0 ACUTE BRONCHITIS 10/04/2012 Ot 784.0 HEADACHE 10/04/2012 Ot 786.2 COUGH 01/23/2013 Ot 844.9 SPRAIN OF KNEE LEG NOS 01/23/2013 Ot 959.7 LOWER LEG INJURY NOS 01/23/2013 Ot E000.8 OTHER EXTERNAL CAUSE STATUS 01/23/2013 Ot E849.0 ACCIDENT IN HOME 01/23/2013 Ot E881.0 FALL FROM LADDER 02/14/2013 DEANNE CASTELLANOS DO Ot 723.1 CERVICALGIA 02/14/2013 DEANNE CASTELLANOS DO Ot 840.9 SPRAIN SHOULDER/ARM NOS 02/14/2013 DEANNE CASTELLANOS DO Ot E000.8 OTHER EXTERNAL CAUSE STATUS 02/14/2013 DEANNE CASTELLANOS DO Ot E029.9 OTHER ACTIVITY 02/14/2013 DEANNE CASTELLANOS DO Ot E927.8 OTH OVEREXERTION STRENUOUS REPETITIV 02/25/2013 LUDMILA COLBY, DEMETRIA Temo Ot 782.0 SKIN SENSATION DISTURB 08/15/2013 BRY ACOSTA MD Ot 174.9 MALIGN NEOPL BREAST NOS 08/26/2013 ERIKA DERAS MD Ot V10.3 HX OF BREAST MALIGNANCY 08/26/2013 ERIKA DERAS MD Ot V45.71 ACQUIRED ABSENCE OF BREAST AND NIPPLE 08/26/2013 ERIKA DERAS MD Ot V58.31 ENCOUNTER FOR CHANGE OR REMOVAL OF SURGI 09/28/2013 MILTON QUEEN VACUUM COOKER OPERATOR Ot 787.03 VOMITING ALONE 09/28/2013 MILTON QUEEN VACUUM COOKER OPERATOR Ot 787.91 DIARRHEA 12/12/2013 NICOLE AVILA MD Ot 174.9 MALIGN NEOPL BREAST NOS 12/12/2013 NICOLE AVILA MD Ot 300.00 ANXIETY STATE NOS 12/12/2013 NICOLE AVILA MD Ot 784.0 HEADACHE 12/12/2013 NICOLE AVILA MD Ot 786.2 COUGH 12/12/2013 NICOLE AVILA MD Ot V58.0 ENCOUNTER FOR RADIOTHERAPY 03/12/2014 BRY ACOSTA MD Ot 211.3 BENIGN NEOPLASM LG BOWEL 03/12/2014 BRY ACOSTA MD Ot 562.10 DIVERTICULOSIS COLON (W/O MENT OF HEMORR 03/12/2014 BRY ACOSTA MD Ot V16.0 FAMILY HX-GI MALIGNANCY 03/12/2014 BRY ACOSTA MD Ot V76.51 SCREEN MAL NEOP-COLON 03/13/2014 NICOLE AVILA MD Ot 174.9 MALIGN NEOPL BREAST NOS 03/13/2014 NICOLE AVILA MD Ot V58.0 ENCOUNTER FOR RADIOTHERAPY 03/23/2014 BRY ACOSTA MD Ot 459.81 VENOUS INSUFFICIENCY NOS 06/01/2014 UMANG MCKNIGHT MD Ot 825.25 FX METATARSAL-CLOSED 06/01/2014 UMANG MCKNIGHT MD Ot 959.7 LOWER LEG INJURY NOS 06/01/2014 UMANG MCKNIGHT MD Ot E000.8 OTHER EXTERNAL CAUSE STATUS 06/01/2014 UMANG MCKNIGHT MD Ot E927.0 OVEREXERTION FROM SUDDEN STRENUOUS MOVEM 06/04/2014 MILTON QUEEN VACUUM COOKER OPERATOR Ot V68.1 ISSUE REPEAT PRESCRIPT 06/26/2014 NICOLE AVILA MD Ot 174.9 MALIGN NEOPL BREAST NOS 06/26/2014 NICOLE AVILA MD Ot V58.81 FIT/ADJ VASCULAR CATHETER 08/28/2014 NICOLE AVILA MD Ot 174.9 09/18/2014 NICOLE AVILA MD Ot 174.9 09/25/2014 NICOLE AVILA MD Ot 174.9 MALIGN NEOPL BREAST NOS 09/25/2014 NICOLE AVILA MD Ot V58.81 FIT/ADJ VASCULAR CATHETER 10/18/2014 NICOLE AVILA MD Ot 174.9 10/25/2014 NICOLE AVILA MD Ot 174.9 10/26/2014 NICOLE AVILA MD Ot 174.9 11/19/2014 NICOLE AVILA MD Ot 070.54 11/19/2014 NICOLE AVILA MD Ot 174.9 11/19/2014 NICOLE AVILA MD Ot 300.00 11/19/2014 NICOLE AVILA MD Ot 305.1 11/19/2014 NICOLE AVILA MD Ot V58.69 01/13/2015 DEMETRIA URIAS Ot 715.36 01/13/2015 DEMETRIA URIAS Ot 719.06 01/13/2015 DEMETRIA URIAS Ot 727.51 01/23/2015 NICOLE AVILA MD Ot 070.54 CHRONIC HEPATITIS C W/O HEPATIC COMA 01/23/2015 NICOLE AVILA MD Ot 174.9 MALIGN NEOPL BREAST NOS 01/23/2015 NICOLE AVILA MD Ot 300.00 ANXIETY STATE NOS 01/23/2015 NICOLE AVILA MD Ot 305.1 TOBACCO USE DISORDER 01/23/2015 NICOLE AVILA MD Ot V58.69 OTH MED,LT,CURRENT USE 01/23/2015 NICOLE AVILA MD Ot V58.81 FIT/ADJ VASCULAR CATHETER 01/30/2015 DEMETRIA URIAS M Ot 715.36 01/30/2015 DEMETRIA URIAS Ot 719.06 01/30/2015 DEMETRIA URIAS Ot 727.51 02/07/2015 NICOLE AVILA MD Ot 070.54 02/07/2015 NICOLE AVILA MD Ot 174.9 02/07/2015 NICOLE AVILA MD Ot 300.00 02/07/2015 NICOLE AVILA MD Ot 305.1 02/07/2015 AUSTIN COLBY NICOLE Willis Ot V58.69 02/07/2015 AUSTIN COLBY, NICOLE Willis Ot 070.54 02/07/2015 AUSTIN COLBY, NICOLE Willis Ot 174.9 02/07/2015 AUSTIN COLBY, NICOLE Willis Ot 300.00 02/07/2015 AUSTIN COLBY, NICOLE Willis Ot 305.1 02/07/2015 AUSTIN COLBY, NICOLE Willis Ot V58.69 02/14/2015 AUSTIN COLBY, NICOLE Willis Ot 070.54 02/14/2015 AUSTIN COLBY, NICOLE Willis Ot 174.9 02/14/2015 AUSTIN COLBY, NICOLE Willis Ot 300.00 02/14/2015 AUSTIN COLBY, NICOLE Willis Ot 305.1 02/14/2015 AUSTIN COLBY, NICOLE Willis Ot V58.69 02/15/2015 AUSTIN COLBY, NICOLE Willis Ot 070.54 02/15/2015 AUSTIN COLBY, NICOLE Willis Ot 174.9 02/15/2015 AUSTIN COLBY, NICOLE Willis Ot 300.00 02/15/2015 AUSTIN COLBY, NICOLE Willis Ot 305.1 02/15/2015 AUSTIN COLBY, NICOLE Willis Ot V58.69 03/15/2015 ROBYN CUEVA Ot 070.70 03/26/2015 AUSTIN COLBY, NICOLE Willis Ot 070.54 03/26/2015 AUSTIN COLBY, NICOLE Willis Ot 174.9 03/26/2015 AUSTIN COLBY, NICOLE Willis Ot 300.00 03/26/2015 AUSTIN COLBY, NICOLE Willis Ot 305.1 03/26/2015 AUSTIN COLBY, NICOLE Willis Ot V58.69 2015 AUSTIN COLBY, NICOLE Willis Ot 070.54 CHRONIC HEPATITIS C W/O HEPATIC COMA 2015 AUSTIN COLBY, NICOLE Willis Ot 174.9 MALIGN NEOPL BREAST NOS 2015 AUSTIN COLBY, NICOLE Willis Ot 300.00 ANXIETY STATE NOS 2015 NICOLE AVILA MD Ot 305.1 TOBACCO USE DISORDER 2015 AUSTIN COLBY, NICOLE Willis Ot V58.69 OTH MED,LT,CURRENT USE 2015 NICOLE AVILA MD Ot V58.81 FIT/ADJ VASCULAR CATHETER 05/22/2015 BIRDIE SANTANA MD Ot 305.1 TOBACCO USE DISORDER 05/22/2015 BIRDIE SANTANA MD Ot 309.81 POSTTRAUMATIC STRESS DISORDER 05/22/2015 BIRDIE SANTANA MD Ot 733.92 CHONDROMALACIA 05/22/2015 BIRDIE SANTANA MD Ot 836.0 TEAR MED MENISC KNEE-CUR 05/22/2015 BIRDIE SANTANA MD Ot 836.1 TEAR LAT MENISC KNEE-CUR 05/22/2015 BIRDIE SANTANA MD Ot V10.3 HX OF BREAST MALIGNANCY 05/22/2015 BIRDIE SANTANA MD Ot V57.1 PHYSICAL THERAPY NEC 05/22/2015 BIRDIE SANTANA MD Ot V58.69 OT MED,LT,CURRENT USE 06/07/2015 AUSTIN COLBY, NICOLE Willis Ot 070.54 06/07/2015 AUSTIN COLBY, NICOLE Willis Ot 174.9 06/07/2015 AUSTIN COLBY, NICOLE Willis Ot 300.00 06/07/2015 AUSTIN COLBY, NICOLE Willis Ot 305.1 06/07/2015 NICOLE AVILA MD Ot V58.69 06/14/2015 NICOLE AVILA MD Ot 070.54 06/14/2015 AUSTIN COLBY, NICOLE Willis Ot 174.9 06/14/2015 AUSTIN COLBY, NICOLE Willis Ot 300.00 06/14/2015 NICOLE AVILA MD Ot 305.1 06/14/2015 NICOLE AVILA MD Ot V58.69 07/03/2015 AUSTIN COLBY, NICOLE Willis Ot 070.54 CHRONIC HEPATITIS C W/O HEPATIC COMA 07/03/2015 AUSTIN COLBY, NICOLE Willis Ot 174.9 MALIGN NEOPL BREAST NOS 07/03/2015 AUSTIN COLBY, NICOLE Willis Ot 300.00 ANXIETY STATE NOS 07/03/2015 AUSTIN COLBY, NICOLE Willis Ot 305.1 TOBACCO USE DISORDER 07/03/2015 AUSTIN COLBY, NICOLE Willis Ot V58.69 OT MED,LT,CURRENT USE 08/14/2015 NICOLE AVILA MD Ot 070.54 08/14/2015 NICOLE AVILA MD Ot 174.9 08/14/2015 AUSTIN COLBY, NICOLE Willis Ot 300.00 08/14/2015 NICOLE AVILA MD Ot 305.1 08/14/2015 NICOLE AVILA MD Ot V58.69 08/19/2015 Ot 780.2 08/19/2015 Ot 311 08/19/2015 Ot V58.69 08/19/2015 LILIANE BASILIO SAP SECURITY CONSULTANT Ot 719.41 08/19/2015 HANS GUERIN SAP SECURITY CONSULTANT Ot 611.72 08/19/2015 KARLA COLBY, BRY M Ot 305.1 08/19/2015 KARLA COLBY, BRY M Ot 611.72 08/19/2015 KARLA COLBY, BRY M Ot 174.9 08/19/2015 KARLA COLBY, BRY M Ot V72.83 08/19/2015 KARLA COLBY, BRY M Ot V74.8 08/19/2015 AUSTIN COLBY, NICOLE K Ot 174.9 08/19/2015 AUSTIN COLBY, NICOLE Willis Ot 610.0 08/19/2015 KARLA COLBY, BRY M Ot V72.84 08/19/2015 KARLA COLBY, BRY M Ot 459.81 08/19/2015 KARLA COLBY, BRY M Ot V72.84 08/19/2015 AUSTIN COLBY, NICOLE K Ot 174.9 08/19/2015 OH PA, DEMETRIA M Ot 715.36 08/19/2015 [place] PA, DEMETRIA M Ot 719.06 08/19/2015 [place] PA, DEMETRIA M Ot 727.51 08/19/2015 ROBYN CUEVA Ot 070.70 08/19/2015 ESTHER COLBY, BIRDIE P Ot 717.7 08/19/2015 ESTHER COLBY, BIRDIE P Ot 836.0 08/19/2015 ESTHER COLBY, BIRDIE P Ot E000.8 08/19/2015 ESTHER COLBY, BIRDIE P Ot E928.9 08/19/2015 ESTHER COLBY, BIRDIE P Ot V72.84 08/19/2015 ESTHER COLBY, BIRDIE P Ot V74.8 08/19/2015 AUSTIN COLBY, NICOLE Willis Ot 070.54 08/19/2015 AUSTIN COLBY, NICOLE Willis Ot 174.9 08/19/2015 AUSTIN COLBY, NICOLE Willis Ot 300.00 08/19/2015 AUSTIN COLBY, NICOLE Willis Ot 305.1 08/19/2015 AUSTIN COLBY, NICOLE Willis Ot V58.69 08/20/2015 LUPE TANG SAP SECURITY CONSULTANT Ot B18.2 08/20/2015 LUPE TANG SAP SECURITY CONSULTANT Ot B18.2 08/23/2015 LUPE TANG SAP SECURITY CONSULTANT Ot B18.2 09/03/2015 LUPE TANG SAP SECURITY CONSULTANT Ot B18.2 09/20/2015 AUSTIN COLBY, NICOLE Willis Ot 070.54 09/20/2015 NICOLE AVILA MD Ot 174.9 09/20/2015 NICOLE AVILA MD Ot 300.00 09/20/2015 AUSTIN COLBY, NICOLE Willis Ot 305.1 09/20/2015 AUSTIN COLBY NICOLE Lazaro Ot V58.69 10/01/2015 AUSTIN COLBY NICOLE Lazaro Ot C50.911 10/01/2015 NICOLE AVILA MD Ot Z45.2 10/14/2015 NICOLE AVILA MD Ot C50.911 10/14/2015 NICOLE AVILA MD Ot Z45.2 10/30/2015 NICOLE AVILA MD Ot C50.911 10/30/2015 NICOLE AVILA MD Ot Z12.31 11/12/2015 NICOLE AVILA MD, Ot C50.911 MALIGNANT NEOPLASM OF UNSP SITE OF RIGHT 11/12/2015 NICOLE AVILA MD, Ot Z45.2 ENCOUNTER FOR ADJUSTMENT AND MANAGEMENT 11/19/2015 NICOLE AVILA MD Ot C50.911 11/19/2015 NICOLE AVILA MD, Ot Z45.2 11/27/2015 AUSTIN COLBY NICOLE Lazaro Ot C50.911 11/27/2015 AUSTIN COLBY NICOLE Lazaro Ot Z45.2 11/29/2015 LUPE TANG Ot B18.2 02/24/2016 NICOLE AVILA MD Ot B18.2 CHRONIC VIRAL HEPATITIS C 02/24/2016 AUSTIN COLBY NICOLE Lazaro [place] C50.911 MALIGNANT NEOPLASM OF UNSP SITE OF RIGHT 02/24/2016 NICOLE AVILA MD Ot F17.210 NICOTINE DEPENDENCE, CIGARETTES, UNCOMPL 02/24/2016 AUSTIN COLBY NICOLE Lazaro Ot F41.9 ANXIETY DISORDER, UNSPECIFIED 02/24/2016 AUSTIN COLBY NICOLE Lazaro Ot Z17.0 ESTROGEN RECEPTOR POSITIVE STATUS [ER+] 02/24/2016 AUSTIN COLBY NICOLE Lazaro Ot Z45.2 ENCOUNTER FOR ADJUSTMENT AND MANAGEMENT 02/24/2016 NICOLE AVILA MD Ot Z79.810 LNG TRM (CRNT) USE OF SLCTV ESTROG CIGAR BANDER HAND 03/05/2016 Ot 780.2 SYNCOPE AND COLLAPSE 03/05/2016 Ot 311 DEPRESSIVE DISORDER NEC 03/05/2016 Ot V58.69 OTH MED,LT,CURRENT USE 03/05/2016 LILIANE BASILIO [facility] Ot 719.41 JOINT PAIN-SHLDER 03/05/2016 HANS GUERIN SAP SECURITY CONSULTANT Ot 611.72 LUMP OR MASS IN BREAST 03/05/2016 KARLA COLBY, BRY Lopez Ot 305.1 TOBACCO USE DISORDER 03/05/2016 KARLA COLBY, BRY Lopez Ot 611.72 LUMP OR MASS IN BREAST 03/05/2016 KARLA COLBY, BRY Lopez Ot 174.9 MALIGN NEOPL BREAST NOS 03/05/2016 KARLA COLBY, BRY Lopez Ot V72.83 EXAM PRE-OPERATIVE NEC 03/05/2016 KARLA COLBY, BRY Lopez Ot V74.8 SCREEN-BACTERIAL DIS NEC 03/05/2016 NICOLE AVILA MD Ot 174.9 MALIGN NEOPL BREAST NOS 03/05/2016 NICOLE AVILA MD Ot 610.0 SOLITARY CYST OF BREAST 03/05/2016 KARLA COLBY, BRY Lopez Ot V72.84 EXAM PRE-OPERATIVE NOS 03/05/2016 KARLA COLBY, BRY Lopez Ot 459.81 VENOUS INSUFFICIENCY NOS 03/05/2016 KARLA COLBY, BRY Lopez Ot V72.84 EXAM PRE-OPERATIVE NOS 03/05/2016 AUSTIN COLBY, NICOLE Willis Ot 174.9 MALIGN NEOPL BREAST NOS 03/05/2016 DEMETRIA URIAS Ot 715.36 LOC OSTEOARTH NOS-L/LEG 03/05/2016 DEMETRIA URIAS Ot 719.06 JOINT EFFUSION-L/LEG 03/05/2016 DEMETRIA URIAS Ot 727.51 POPLITEAL SYNOVIAL CYST 03/05/2016 ROBYN CUEVA Ot 070.70 UNSPECIFIED VIRAL HEPATITIS C WITHOUT HE 03/05/2016 BIRDIE SANTANA MD Ot 717.7 CHONDROMALACIA PATELLAE 03/05/2016 BIRDIE SANTANA MD Ot 836.0 TEAR MED MENISC KNEE-CUR 03/05/2016 BIRDIE SANTANA MD Ot E000.8 OTHER EXTERNAL CAUSE STATUS 03/05/2016 BIRDIE SANTANA MD Ot E928.9 ACCIDENT NOS 03/05/2016 BIRDIE SANTANA MD Ot V72.84 EXAM PRE-OPERATIVE NOS 03/05/2016 BIRDIE SANTANA MD Ot V74.8 SCREEN-BACTERIAL DIS NEC 03/05/2016 LUPE TANG SAP SECURITY CONSULTANT Ot B18.2 CHRONIC VIRAL HEPATITIS C 03/05/2016 NICOLE AVILA MD, Ot C50.911 MALIGNANT NEOPLASM OF UNSP SITE OF RIGHT 03/05/2016 NICOLE AVILA MD Ot Z12.31 ENCNTR SCREEN MAMMOGRAM FOR MALIGNANT NE 03/05/2016 LUPE TANG Ot B18.2 CHRONIC VIRAL HEPATITIS C 03/05/2016 NICOLE AVILA MD, Ot B18.2 CHRONIC VIRAL HEPATITIS C 03/05/2016 NICOLE AVILA MD, Ot C50.911 MALIGNANT NEOPLASM OF UNSP SITE OF RIGHT 03/05/2016 NICOLE AVILA MD Ot F17.210 NICOTINE DEPENDENCE, CIGARETTES, UNCOMPL 03/05/2016 NICOLE AVILA MD, Ot F41.9 ANXIETY DISORDER, UNSPECIFIED 03/05/2016 NICOLE AVILA MD, Ot Z17.0 ESTROGEN RECEPTOR POSITIVE STATUS [ER+] 03/05/2016 NICOLE AVILA MD, Ot Z79.810 LNG TRM (CRNT) USE OF SLCTV ESTROG CIGAR BANDER HAND 03/24/2016 NICOLE AVILA MD, Ot B18.2 CHRONIC VIRAL HEPATITIS C 03/24/2016 NICOLE AVILA MD, Ot C50.911 MALIGNANT NEOPLASM OF UNSP SITE OF RIGHT 03/24/2016 NICOLE AVILA MD Ot F17.210 NICOTINE DEPENDENCE, CIGARETTES, UNCOMPL 03/24/2016 NICOLE AVILA MD, Ot F41.9 ANXIETY DISORDER, UNSPECIFIED 03/24/2016 NICOLE AVILA MD, Ot Z17.0 ESTROGEN RECEPTOR POSITIVE STATUS [ER+] 03/24/2016 NICOLE AVILA MD, Ot Z79.810 LNG TRM (CRNT) USE OF SLCTV ESTROG CIGAR BANDER HAND 04/14/2016 NICOLE AVILA MD Ot B18.2 CHRONIC VIRAL HEPATITIS C 04/14/2016 NICOLE AVILA MD, Ot C50.911 MALIGNANT NEOPLASM OF UNSP SITE OF RIGHT 04/14/2016 NICOLE AVILA MD Ot F17.210 NICOTINE DEPENDENCE, CIGARETTES, UNCOMPL 04/14/2016 NICOLE AVILA MD, Ot F41.9 ANXIETY DISORDER, UNSPECIFIED 04/14/2016 NICOLE AVILA MD Ot Z17.0 ESTROGEN RECEPTOR POSITIVE STATUS [ER+] 04/14/2016 NICOLE AVILA MD, Ot Z79.810 LNG TRM (CRNT) USE OF SLCTV ESTROG CIGAR BANDER HAND 07/09/2016 NICOLE AVILA MD Ot B18.2 CHRONIC VIRAL HEPATITIS C 07/09/2016 NICOLE AVILA MD, Ot C50.911 MALIGNANT NEOPLASM OF UNSP SITE OF RIGHT 07/09/2016 NICOLE AVILA MD, Ot F17.210 NICOTINE DEPENDENCE, CIGARETTES, UNCOMPL 07/09/2016 NICOLE AVILA MD, Ot F41.9 ANXIETY DISORDER, UNSPECIFIED 07/09/2016 NICOLE AVILA MD Ot Z17.0 ESTROGEN RECEPTOR POSITIVE STATUS [ER+] 07/09/2016 NICOLE AVILA MD, Ot Z45.2 ENCOUNTER FOR ADJUSTMENT AND MANAGEMENT 07/09/2016 NICOLE AVILA MD, Ot Z79.810 LNG TRM (CRNT) USE OF SLCTV ESTROG CIGAR BANDER HAND 07/10/2016 NICOLE AVILA MD, Ot B18.2 CHRONIC VIRAL HEPATITIS C 07/10/2016 NICOLE AVILA MD, Ot C50.911 MALIGNANT NEOPLASM OF UNSP SITE OF RIGHT 07/10/2016 NICOLE AVILA MD, Ot F17.210 NICOTINE DEPENDENCE, CIGARETTES, UNCOMPL 07/10/2016 NICOLE AVILA MD, Ot F41.9 ANXIETY DISORDER, UNSPECIFIED 07/10/2016 NICOLE AVILA MD, Ot Z17.0 ESTROGEN RECEPTOR POSITIVE STATUS [ER+] 07/10/2016 NICOLE AVILA MD Ot Z45.2 ENCOUNTER FOR ADJUSTMENT AND MANAGEMENT 07/10/2016 NICOLE AVILA MD, Ot Z79.810 LNG TRM (CRNT) USE OF SLCTV ESTROG CIGAR BANDER HAND 07/15/2016 NICOLE AVILA MD, Ot B18.2 CHRONIC VIRAL HEPATITIS C 07/15/2016 NICOLE AVILA MD, Ot C50.911 MALIGNANT NEOPLASM OF UNSP SITE OF RIGHT 07/15/2016 NICOLE AVILA MD, Ot F17.210 NICOTINE DEPENDENCE, CIGARETTES, UNCOMPL 07/15/2016 NICOLE AVILA MD, Ot F41.9 ANXIETY DISORDER, UNSPECIFIED 07/15/2016 NICOLE AVILA MD, Ot Z17.0 ESTROGEN RECEPTOR POSITIVE STATUS [ER+] 07/15/2016 NICOLE AVILA MD Ot Z45.2 ENCOUNTER FOR ADJUSTMENT AND MANAGEMENT 07/15/2016 NICOLE AVILA MD, Ot Z79.810 LNG TRM (CRNT) USE OF SLCTV ESTROG CIGAR BANDER HAND 08/10/2016 NICOLE AVILA MD, Ot B18.2 CHRONIC VIRAL HEPATITIS C 08/10/2016 NICOLE AVILA MD, Ot C50.911 MALIGNANT NEOPLASM OF UNSP SITE OF RIGHT 08/10/2016 AUSTIN COLBY, NICOLE Willis Ot F17.210 NICOTINE DEPENDENCE, CIGARETTES, UNCOMPL 08/10/2016 AUSTIN COLBY, NICOLE Willis Ot F41.9 ANXIETY DISORDER, UNSPECIFIED 08/10/2016 NICOLE AVILA MD Ot Z17.0 ESTROGEN RECEPTOR POSITIVE STATUS [ER+] 08/10/2016 NICOLE AVILA MD Ot Z79.810 LNG TRM (CRNT) USE OF SLCTV ESTROG CIGAR BANDER HAND 08/12/2016 Ot 780.2 SYNCOPE AND COLLAPSE 08/12/2016 Ot 311 DEPRESSIVE DISORDER NEC 08/12/2016 Ot V58.69 OTH MED,LT,CURRENT USE 08/12/2016 LILIANE BASILIO SAP SECURITY CONSULTANT Ot 719.41 JOINT PAIN-SHLDER 08/12/2016 HANS GUERIN SAP SECURITY CONSULTANT Ot 611.72 LUMP OR MASS IN BREAST 08/12/2016 KARLA COLBY, BRY Lopez Ot 305.1 TOBACCO USE DISORDER 08/12/2016 KARLA COLBY, BRY Lopez Ot 611.72 LUMP OR MASS IN BREAST 08/12/2016 KARLA COLBY, BRY Lopez Ot 174.9 MALIGN NEOPL BREAST NOS 08/12/2016 KARLA COLBY, BRY Lopez Ot V72.83 EXAM PRE-OPERATIVE NEC 08/12/2016 KARLA COLBY, BRY Lopze Ot V74.8 SCREEN-BACTERIAL DIS NEC 08/12/2016 NICOLE AVILA MD Ot 174.9 MALIGN NEOPL BREAST NOS 08/12/2016 NICOLE AVILA MD Ot 610.0 SOLITARY CYST OF BREAST 08/12/2016 KARLA COLBY, BRY Lopez Ot V72.84 EXAM PRE-OPERATIVE NOS 08/12/2016 BRY ACOSTA MD Ot 459.81 VENOUS INSUFFICIENCY NOS 08/12/2016 BRY ACOSTA MD Ot V72.84 EXAM PRE-OPERATIVE NOS 08/12/2016 NICOLE AVILA MD Ot 174.9 MALIGN NEOPL BREAST NOS 08/12/2016 DEMETRIA URIAS Ot 715.36 LOC OSTEOARTH NOS-L/LEG 08/12/2016 DEMETRIA URIAS Ot 719.06 JOINT EFFUSION-L/LEG 08/12/2016 DEMETRIA URIAS Ot 727.51 POPLITEAL SYNOVIAL CYST 08/12/2016 ROBYN CUEVA Ot 070.70 UNSPECIFIED VIRAL HEPATITIS C WITHOUT HE 08/12/2016 BIRDIE SANTANA MD Ot 717.7 CHONDROMALACIA PATELLAE 08/12/2016 BIRDIE SANTANA MD Ot 836.0 TEAR MED MENISC KNEE-CUR 08/12/2016 BIRDIE SANTANA MD Ot E000.8 OTHER EXTERNAL CAUSE STATUS 08/12/2016 BIRDIE SANTANA MD Ot E928.9 ACCIDENT NOS 08/12/2016 BIRDIE SANTANA MD Ot V72.84 EXAM PRE-OPERATIVE NOS 08/12/2016 BIRDIE SANTANA MD Ot V74.8 SCREEN-BACTERIAL DIS NEC 08/12/2016 LUPE TANG Ot B18.2 CHRONIC VIRAL HEPATITIS C 08/12/2016 NICOLE AVILA MD, Ot C50.911 MALIGNANT NEOPLASM OF UNSP SITE OF RIGHT 08/12/2016 NICOLE AVILA MD, Ot Z12.31 ENCNTR SCREEN MAMMOGRAM FOR MALIGNANT NE 08/12/2016 LUPE TANG Ot B18.2 CHRONIC VIRAL HEPATITIS C 08/12/2016 NICOLE AVILA MD, Ot B18.2 CHRONIC VIRAL HEPATITIS C 08/12/2016 NICOLE AVILA MD, Ot C50.911 MALIGNANT NEOPLASM OF UNSP SITE OF RIGHT 08/12/2016 NICOLE AVILA MD, Ot F17.210 NICOTINE DEPENDENCE, CIGARETTES, UNCOMPL 08/12/2016 NICOLE AVILA MD, Ot F41.9 ANXIETY DISORDER, UNSPECIFIED 08/12/2016 NICOLE AVILA MD, Ot Z17.0 ESTROGEN RECEPTOR POSITIVE STATUS [ER+] 08/12/2016 NICOLE AVILA MD, Ot Z45.2 ENCOUNTER FOR ADJUSTMENT AND MANAGEMENT 08/12/2016 NICOLE AVILA MD, Ot Z79.810 LNG TRM (CRNT) USE OF SLCTV ESTROG CIGAR BANDER HAND 08/12/2016 NICOLE AVILA MD, Ot B18.2 CHRONIC VIRAL HEPATITIS C 08/12/2016 NICOLE AVILA MD, Ot C50.911 MALIGNANT NEOPLASM OF UNSP SITE OF RIGHT 08/12/2016 NICOLE AVILA MD, Ot F17.210 NICOTINE DEPENDENCE, CIGARETTES, UNCOMPL 08/12/2016 NICOLE AVILA MD Ot F41.9 ANXIETY DISORDER, UNSPECIFIED 08/12/2016 NICOLE AVILA MD, Ot Z17.0 ESTROGEN RECEPTOR POSITIVE STATUS [ER+] 08/12/2016 NICOLE AVILA MD Ot Z45.2 ENCOUNTER FOR ADJUSTMENT AND MANAGEMENT 08/12/2016 NICOLE AVILA MD Ot Z79.810 LNG TRM (CRNT) USE OF SLCTV ESTROG CIGAR BANDER HAND 08/12/2016 LUPE TANG SAP SECURITY CONSULTANT Ot B18.2 CHRONIC VIRAL HEPATITIS C 08/12/2016 LUPE TANGP Ot B18.2 CHRONIC VIRAL HEPATITIS C 08/13/2016 NICOLE AVILA MD Ot B18.2 CHRONIC VIRAL HEPATITIS C 08/13/2016 NICOLE AVILA MD Ot C50.911 MALIGNANT NEOPLASM OF UNSP SITE OF RIGHT 08/13/2016 NICOLE AVILA MD Ot F17.210 NICOTINE DEPENDENCE, CIGARETTES, UNCOMPL 08/13/2016 NICOLE AVILA MD, Ot F41.9 ANXIETY DISORDER, UNSPECIFIED 08/13/2016 NICOLE AVILA MD Ot Z17.0 ESTROGEN RECEPTOR POSITIVE STATUS [ER+] 08/13/2016 NICOLE AVILA MD Ot Z45.2 ENCOUNTER FOR ADJUSTMENT AND MANAGEMENT 08/13/2016 NICOLE AVILA MD Ot Z79.810 LNG TRM (CRNT) USE OF SLCTV ESTROG CIGAR BANDER HAND 08/26/2016 LUPE TANGP Ot B18.2 CHRONIC VIRAL HEPATITIS C 10/02/2016 MILTON QUEEN APRN Ot N39.0 URINARY TRACT INFECTION, SITE NOT SPECIF 10/02/2016 MILTON QUEEN APRN Ot N93.9 ABNORMAL UTERINE AND VAGINAL BLEEDING, U 10/02/2016 MILTON QUEEN APRN Ot Z79.899 OTHER [facility] (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 THERAPY 10/02/2016 MILTON QUEEN VACUUM COOKER OPERATOR Ot Z85.3 PERSONAL HISTORY OF MALIGNANT NEOPLASM O 10/02/2016 MILTON QUEEN VACUUM COOKER OPERATOR Ot 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 10/06/2016 MILTON QUEEN VACUUM COOKER OPERATOR Ot N39.0 URINARY TRACT INFECTION, SITE NOT SPECIF 10/06/2016 MILTON QUEEN VACUUM COOKER OPERATOR Ot N93.9 ABNORMAL UTERINE AND VAGINAL BLEEDING, U 10/06/2016 MILTON QUEEN VACUUM COOKER OPERATOR Ot Z79.899 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 (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 THERAPY 10/06/2016 MILTON QUEEN VACUUM COOKER OPERATOR Ot Z85.3 PERSONAL HISTORY OF MALIGNANT NEOPLASM O 10/06/2016 MILTON QUEEN VACUUM COOKER OPERATOR Ot 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 10/08/2016 MILTNO QUEEN VACUUM COOKER OPERATOR Ot N39.0 URINARY TRACT INFECTION, SITE NOT SPECIF 10/08/2016 MILTON QUEEN VACUUM COOKER OPERATOR Ot N93.9 ABNORMAL UTERINE AND VAGINAL BLEEDING, U 10/08/2016 MILTON QUEEN VACUUM COOKER OPERATOR Ot Z79.899 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[employer] (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 10/08/2016 MILTON QUEEN APRN Ot Z85.3 PERSONAL HISTORY OF MALIGNANT NEOPLASM O 10/08/2016 MILTON QUEEN VACUUM COOKER OPERATOR Ot 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 11/05/2016 NICOLE AVILA MD, Ot B18.2 CHRONIC VIRAL HEPATITIS C 11/05/2016 NICOLE AVILA MD, Ot C50.911 MALIGNANT NEOPLASM OF UNSP SITE OF RIGHT 11/05/2016 NICOLE AVILA MD, Ot F17.210 NICOTINE DEPENDENCE, CIGARETTES, UNCOMPL 11/05/2016 NICOLE AVILA MD, Ot F41.9 ANXIETY DISORDER, UNSPECIFIED 11/05/2016 NICOLE AVILA MD, Ot Z17.0 ESTROGEN RECEPTOR POSITIVE STATUS [ER+] 11/05/2016 NICOLE AVILA MD, Ot Z45.2 ENCOUNTER FOR ADJUSTMENT AND MANAGEMENT 11/05/2016 NICOLE AVILA MD, Ot Z79.810 LNG TRM (CRNT) USE OF SLCTV ESTROG CIGAR BANDER HAND 11/19/2016 NICOLE AVILA MD, Ot B18.2 CHRONIC VIRAL HEPATITIS C 11/19/2016 NICOLE AVILA MD, Ot C50.911 MALIGNANT NEOPLASM OF UNSP SITE OF RIGHT 11/19/2016 NICOLE AVILA MD, Ot F17.210 NICOTINE DEPENDENCE, CIGARETTES, UNCOMPL 11/19/2016 NICOLE AVILA MD, Ot F41.9 ANXIETY DISORDER, UNSPECIFIED 11/19/2016 NICOLE AVILA MD, Ot Z17.0 ESTROGEN RECEPTOR POSITIVE STATUS [ER+] 11/19/2016 NICOLE AVILA MD, Ot Z45.2 ENCOUNTER FOR ADJUSTMENT AND MANAGEMENT 11/19/2016 NICOLE AVILA MD, Ot Z79.810 LNG TRM (CRNT) USE OF SLCTV ESTROG CIGAR BANDER HAND 12/01/2016 NICOLE AVILA MD, Ot B18.2 CHRONIC VIRAL HEPATITIS C 12/01/2016 AUSTIN MD, NICOLE K Ot C50.911 MALIGNANT NEOPLASM OF UNSP SITE OF RIGHT 12/01/2016 NICOLE AVILA MD Ot F17.210 NICOTINE DEPENDENCE, CIGARETTES, UNCOMPL 12/01/2016 NICOLE AVILA MD Ot F41.9 ANXIETY DISORDER, UNSPECIFIED 12/01/2016 NICOLE AVILA MD Ot Z17.0 ESTROGEN RECEPTOR POSITIVE STATUS [ER+] 12/01/2016 NICOLE AVILA MD Ot Z45.2 ENCOUNTER FOR ADJUSTMENT AND MANAGEMENT 12/01/2016 NICOLE AVILA MD Ot Z79.810 LNG TRM (CRNT) USE OF SLCTV ESTROG CIGAR BANDER HAND 12/08/2016 Ot 780.2 SYNCOPE AND COLLAPSE 12/08/2016 Ot 311 DEPRESSIVE DISORDER NEC 12/08/2016 Ot V58.69 OTH MED,LT,CURRENT USE 12/08/2016 LILIANE BASILIO SAP SECURITY CONSULTANT Ot 719.41 JOINT PAIN-SHLDER 12/08/2016 HANS GUERIN SAP SECURITY CONSULTANT Ot 611.72 LUMP OR MASS IN BREAST 12/08/2016 BRY ACOSTA MD Ot 305.1 TOBACCO USE DISORDER 12/08/2016 BRY ACOSTA MD Ot 611.72 LUMP OR MASS IN BREAST 12/08/2016 BRY ACOSTA MD Ot 174.9 MALIGN NEOPL BREAST NOS 12/08/2016 BRY ACOSTA MD Ot V72.83 EXAM PRE-OPERATIVE NEC 12/08/2016 BRY ACOSTA MD Ot V74.8 SCREEN-BACTERIAL DIS NEC 12/08/2016 NICOLE AVILA MD Ot 174.9 MALIGN NEOPL BREAST NOS 12/08/2016 NICOLE AVILA MD Ot 610.0 SOLITARY CYST OF BREAST 12/08/2016 BRY ACOSTA MD Ot V72.84 EXAM PRE-OPERATIVE NOS 12/08/2016 BRY ACOSTA MD Ot 459.81 VENOUS INSUFFICIENCY NOS 12/08/2016 BRY ACOSTA MD Ot V72.84 EXAM PRE-OPERATIVE NOS 12/08/2016 NICOLE AVILA MD Ot 174.9 MALIGN NEOPL BREAST NOS 12/08/2016 DEMETRIA URIAS Ot 715.36 LOC OSTEOARTH NOS-L/LEG 12/08/2016 DEMETRIA URIAS Ot 719.06 JOINT EFFUSION-L/LEG 12/08/2016 DEMETRIA URIAS Ot 727.51 POPLITEAL SYNOVIAL CYST 12/08/2016 ROBYN CUEVA NP Ot 070.70 UNSPECIFIED VIRAL HEPATITIS C WITHOUT HE 12/08/2016 BIRDIE SANTANA MD Ot 717.7 CHONDROMALACIA PATELLAE 12/08/2016 BIRDIE SANTANA MD Ot 836.0 TEAR MED MENISC KNEE-CUR 12/08/2016 BIRDIE SANTANA MD Ot E000.8 OTHER EXTERNAL CAUSE STATUS 12/08/2016 BIRDIE SANTANA MD Ot E928.9 ACCIDENT NOS 12/08/2016 BIRDIE SANTANA MD Ot V72.84 EXAM PRE-OPERATIVE NOS 12/08/2016 BIRDIE SANTANA MD Ot V74.8 SCREEN-BACTERIAL DIS NEC 12/08/2016 LUPE TANG Ot B18.2 CHRONIC VIRAL HEPATITIS C 12/08/2016 NICOLE AVILA MD Ot C50.911 MALIGNANT NEOPLASM OF UNSP SITE OF RIGHT 12/08/2016 NICOLE AVILA MD Ot Z12.31 ENCNTR SCREEN MAMMOGRAM FOR MALIGNANT NE 12/08/2016 LUPE TANG Ot B18.2 CHRONIC VIRAL HEPATITIS C 12/08/2016 NICOLE AVILA MD Ot B18.2 CHRONIC VIRAL HEPATITIS C 12/08/2016 NICOLE AVILA MD Ot C50.911 MALIGNANT NEOPLASM OF UNSP SITE OF RIGHT 12/08/2016 NICOLE AVILA MD Ot F17.210 NICOTINE DEPENDENCE, CIGARETTES, UNCOMPL 12/08/2016 NICOLE AVILA MD Ot F41.9 ANXIETY DISORDER, UNSPECIFIED 12/08/2016 NICOLE AVILA MD Ot Z17.0 ESTROGEN RECEPTOR POSITIVE STATUS [ER+] 12/08/2016 NICOLE AVILA MD Ot Z45.2 ENCOUNTER FOR ADJUSTMENT AND MANAGEMENT 12/08/2016 NICOLE AVILA MD Ot Z79.810 LNG TRM (CRNT) USE OF SLCTV ESTROG CIGAR BANDER HAND 12/17/2016 Ot 780.2 SYNCOPE AND COLLAPSE 12/17/2016 Ot 311 DEPRESSIVE DISORDER NEC 12/17/2016 Ot V58.69 OTH MED,LT,CURRENT USE 12/17/2016 LILIANE BASILIO SAP SECURITY CONSULTANT Ot 719.41 JOINT PAIN-SHLDER 12/17/2016 HANS GUERIN SAP SECURITY CONSULTANT Ot 611.72 LUMP OR MASS IN BREAST 12/17/2016 KARLA COLBY, BRY Lopez Ot 305.1 TOBACCO USE DISORDER 12/17/2016 KARLA COLBY, BRY Lopez Ot 611.72 LUMP OR MASS IN BREAST 12/17/2016 KARLA COLBY, BRY Lopez Ot 174.9 MALIGN NEOPL BREAST NOS 12/17/2016 KARLA COLBY, BRY Lopez Ot V72.83 EXAM PRE-OPERATIVE NEC 12/17/2016 KARLA COLBY, BRY Lopez Ot V74.8 SCREEN-BACTERIAL DIS NEC 12/17/2016 AUSTIN COLBY, NICOLE Willis Ot 174.9 MALIGN NEOPL BREAST NOS 12/17/2016 AUSTIN COLBY, NICOLE Willis Ot 610.0 SOLITARY CYST OF BREAST 12/17/2016 KARLA COLBY, BRY Lopez Ot V72.84 EXAM PRE-OPERATIVE NOS 12/17/2016 KARLA COLBY, BRY Lopez Ot 459.81 VENOUS INSUFFICIENCY NOS 12/17/2016 KARLA COLBY, BRY Lopez Ot V72.84 EXAM PRE-OPERATIVE NOS 12/17/2016 AUSTIN COLBY, INCOLE Willis Ot 174.9 MALIGN NEOPL BREAST NOS 12/17/2016 DEMETRIA URIAS Ot 715.36 LOC OSTEOARTH NOS-L/LEG 12/17/2016 OH KANG, DEMETRIA M Ot 719.06 JOINT EFFUSION-L/LEG 12/17/2016 DEMETRIA URIAS M Ot 727.51 POPLITEAL SYNOVIAL CYST 12/17/2016 ROBYN CUEVA Ot 070.70 UNSPECIFIED VIRAL HEPATITIS C WITHOUT HE 12/17/2016 BIRDIE SANTANA MD Ot 717.7 CHONDROMALACIA PATELLAE 12/17/2016 BIRDIE SANTANA MD Ot 836.0 TEAR MED MENISC KNEE-CUR 12/17/2016 BIRDIE SANTANA MD Ot E000.8 OTHER EXTERNAL CAUSE STATUS 12/17/2016 BIRDIE SANTANA MD Ot E928.9 ACCIDENT NOS 12/17/2016 BIRDIE SANTANA MD Ot V72.84 EXAM PRE-OPERATIVE NOS 12/17/2016 BIRDIE SANTANA MD Ot V74.8 SCREEN-BACTERIAL DIS NEC 12/17/2016 LUPE TANG SAP SECURITY CONSULTANT Ot B18.2 CHRONIC VIRAL HEPATITIS C 12/17/2016 AUSTIN COLBY, NICOLE Willis Ot C50.911 MALIGNANT NEOPLASM OF UNSP SITE OF RIGHT 12/17/2016 NICOLE AVILA MD Ot Z12.31 ENCNTR SCREEN MAMMOGRAM FOR MALIGNANT NE 12/17/2016 LUPE TANG SAP SECURITY CONSULTANT Ot B18.2 CHRONIC VIRAL HEPATITIS C 12/17/2016 NICOLE AVILA MD Ot B18.2 CHRONIC VIRAL HEPATITIS C 12/17/2016 NICOLE AVILA MD Ot C50.911 MALIGNANT NEOPLASM OF UNSP SITE OF RIGHT 12/17/2016 NICOLE AVILA MD Ot F17.210 NICOTINE DEPENDENCE, CIGARETTES, UNCOMPL 12/17/2016 NICOLE AVILA MD Ot F41.9 ANXIETY DISORDER, UNSPECIFIED 12/17/2016 NICOLE AVILA MD Ot Z17.0 ESTROGEN RECEPTOR POSITIVE STATUS [ER+] 12/17/2016 NICOLE AVILA MD Ot Z45.2 ENCOUNTER FOR ADJUSTMENT AND MANAGEMENT 12/17/2016 NICOLE AVILA MD Ot Z79.810 LNG TRM (CRNT) USE OF SLCTV ESTROG CIGAR BANDER HAND 12/17/2016 Ot 780.2 SYNCOPE AND COLLAPSE 12/17/2016 Ot 311 DEPRESSIVE DISORDER NEC 12/17/2016 Ot V58.69 OTH MED,LT,CURRENT USE 12/17/2016 LILIANE BASILIO SAP SECURITY CONSULTANT Ot 719.41 JOINT PAIN-SHLDER 12/17/2016 HANS GUERIN SAP SECURITY CONSULTANT Ot 611.72 LUMP OR MASS IN BREAST 12/17/2016 KARLA COLBY, BRY Lopez Ot 305.1 TOBACCO USE DISORDER 12/17/2016 BRY ACOSTA MD Ot 611.72 LUMP OR MASS IN BREAST 12/17/2016 BRY ACOSTA MD Ot 174.9 MALIGN NEOPL BREAST NOS 12/17/2016 BRY ACOSTA MD Ot V72.83 EXAM PRE-OPERATIVE NEC 12/17/2016 BRY ACOSTA MD Ot V74.8 SCREEN-BACTERIAL DIS NEC 12/17/2016 NICOLE AVILA MD Ot 174.9 MALIGN NEOPL BREAST NOS 12/17/2016 NICOLE AVILA MD Ot 610.0 SOLITARY CYST OF BREAST 12/17/2016 BRY ACOSTA MD Ot V72.84 EXAM PRE-OPERATIVE NOS 12/17/2016 BRY ACOSTA MD Ot 459.81 VENOUS INSUFFICIENCY NOS 12/17/2016 BRY ACOSTA MD Ot V72.84 EXAM PRE-OPERATIVE NOS 12/17/2016 AUSTIN COLBY, NICOLE Willis Ot 174.9 MALIGN NEOPL BREAST NOS 12/17/2016 DEMETRIA URIAS Ot 715.36 LOC OSTEOARTH NOS-L/LEG 12/17/2016 DEMETRIA URIAS Ot 719.06 JOINT EFFUSION-L/LEG 12/17/2016 DEMETRIA URIAS Ot 727.51 POPLITEAL SYNOVIAL CYST 12/17/2016 HAMMAD ROBYNDAPHNEY VINCENT Ot 070.70 UNSPECIFIED VIRAL HEPATITIS C WITHOUT HE 12/17/2016 BIRDIE SANTANA MD Ot 717.7 CHONDROMALACIA PATELLAE 12/17/2016 BIRDIE SANTANA MD Ot 836.0 TEAR MED MENISC KNEE-CUR 12/17/2016 BIRDIE SANTANA MD Ot E000.8 OTHER EXTERNAL CAUSE STATUS 12/17/2016 BIRDIE SANATNA MD Ot E928.9 ACCIDENT NOS 12/17/2016 BIRDIE SANTANA MD Ot V72.84 EXAM PRE-OPERATIVE NOS 12/17/2016 BIRDIE SANTANA MD Ot V74.8 SCREEN-BACTERIAL DIS NEC 12/17/2016 LUPE TANG Ot B18.2 CHRONIC VIRAL HEPATITIS C 12/17/2016 NICOLE AVILA MD Ot C50.911 MALIGNANT NEOPLASM OF UNSP SITE OF RIGHT 12/17/2016 NICOLE AVILA MD Ot Z12.31 ENCNTR SCREEN MAMMOGRAM FOR MALIGNANT NE 12/17/2016 LUPE TANG Ot B18.2 CHRONIC VIRAL HEPATITIS C 12/17/2016 NICOLE AVILA MD Ot B18.2 CHRONIC VIRAL HEPATITIS C 12/17/2016 NICOLE AVILA MD Ot C50.911 MALIGNANT NEOPLASM OF UNSP SITE OF RIGHT 12/17/2016 NICOLE AVILA MD Ot F17.210 NICOTINE DEPENDENCE, CIGARETTES, UNCOMPL 12/17/2016 NIOCLE AVILA MD Ot F41.9 ANXIETY DISORDER, UNSPECIFIED 12/17/2016 NICOLE AVILA MD Ot Z17.0 ESTROGEN RECEPTOR POSITIVE STATUS [ER+] 12/17/2016 NICOLE AVILA MD Ot Z45.2 ENCOUNTER FOR ADJUSTMENT AND MANAGEMENT 12/17/2016 NICOLE AVILA MD, Ot Z79.810 LNG TRM (CRNT) USE OF SLCTV ESTROG CIGAR BANDER HAND 12/17/2016 KARLA COLBY, BRY Lopez Ot C50.911 MALIGNANT NEOPLASM OF UNSP SITE OF RIGHT 12/17/2016 KARLA COLBY, BRY Lopez Ot Z01.818 ENCOUNTER FOR OTHER PREPROCEDURAL EXAMIN Procedures Results Test Result Range Complete blood count (CBC) with automated white blood cell (WBC) differential - 10/02/16 15:24 Blood leukocytes automated count (number/volume) 7.7 10*3/ uL 4.3-11.0 Blood erythrocytes automated count (number/volume) 4.88 10*6 /uL 4.35-5.85 Venous blood hemoglobin measurement (mass/volume) 14.7 g/dL 11.5-16.0 Blood hematocrit (volume fraction) 42 % 35-52 Automated erythrocyte mean corpuscular volume 86 [foz_us] 80-99 Automated erythrocyte mean corpuscular hemoglobin (mass per erythrocyte) 30 pg 25-34 Automated erythrocyte mean corpuscular hemoglobin concentration measurement ( mass/volume) 35 g/dL 32-36 Automated erythrocyte distribution width ratio 13.9 % 10.0-14.5 Automated blood platelet count (count/volume) 393 10*3/uL 130-400 Automated blood platelet mean volume measurement 9.5 [foz_us ] 7.4-10.4 Automated blood neutrophils/100 leukocytes 60 % 42-75 Automated blood lymphocytes/100 leukocytes 28 % 12-44 Blood monocytes/100 leukocytes 9 % 0-12 Automated blood eosinophils/100 leukocytes 2 % 0-10 Automated blood basophils/100 leukocytes 1 % 0-10 Blood neutrophils automated count (number/volume) 4.6 10*3 1.8-7.8 Blood lymphocytes automated count (number/volume) 2.2 10*3 1.0-4.0 Blood monocytes automated count (number/volume) 0.7 10*3 0.0-1.0 Automated eosinophil count 0.2 10*3/uL 0.0-0.3 Automated blood basophil count (count/volume) 0.1 10*3/uL 0.0-0.1 PT panel in platelet poor plasma by coagulation assay - 10/02/16 15:24 Prothrombin time (PT) in platelet poor plasma by coagulation assay 11.7 s 12.2-14.7 INR in platelet poor plasma or blood by coagulation assay 0.9 0.8-1.4 Comprehensive metabolic panel - 10/02/16 15:24 Serum or plasma sodium measurement (moles/volume) 137 mmol/ L 135-145 Serum or plasma potassium measurement (moles/volume) 4.4 mmol/L 3.6-5.0 Serum or plasma chloride measurement (moles/volume) 104 mmol /L 98-107 Carbon dioxide 23 mmol/L 21-32 Serum or plasma anion gap determination (moles/volume) 10 mmol/L 5-14 Serum or plasma urea nitrogen measurement (mass/volume) 6 mg /dL 7-18 Serum or plasma creatinine measurement (mass/volume) 0.82 mg /dL 0.60-1.30 Serum or plasma urea nitrogen/creatinine mass ratio 7 NRG Serum or plasma creatinine measurement with calculation of estimated glomerular filtration rate > NRG Serum or plasma glucose measurement (mass/volume) 81 mg/dL 70-105 Serum or plasma calcium measurement (mass/volume) 9.4 mg/dL 8.5-10.1 Serum or plasma total bilirubin measurement (mass/volume) 0.2 mg/dL 0.1-1.0 Serum or plasma alkaline phosphatase measurement (enzymatic activity/volume) 67 U/L 40-136 Serum or plasma aspartate aminotransferase measurement (enzymatic activity/ volume) 15 U/L 5-34 Serum or plasma alanine aminotransferase measurement (enzymatic activity/volume ) 11 U/L 0-55 Serum or plasma protein measurement (mass/volume) 7.5 g/dL 6.4-8.2 Serum or plasma albumin measurement (mass/volume) 4.1 g/dL 3.2-4.5 Serum or plasma ethanol measurement (mass/volume) - 10/02/16 15:24 Serum or plasma ethanol measurement (mass/volume) < mg/dL <10 Complete urinalysis with reflex to culture - 10/02/16 15:45 Urine color determination YELLOW NRG Urine clarity determination CLEAR NRG Urine pH measurement by test strip 7 5- 9 Specific gravity of urine by test strip 1.005 1.016-1.022 Urine protein assay by test strip, semi-quantitative NEGATIVE NEGATIVE Urine glucose detection by automated test strip NEGATIVE NEGATIVE Erythrocytes detection in urine sediment by light microscopy 1+ NEGATIVE Urine ketones detection by automated test strip NEGATIVE NEGATIVE Urine nitrite detection by test strip NEGATIVE NEGATIVE Urine total bilirubin detection by test strip NEGATIVE NEGATIVE Urine urobilinogen measurement by automated test strip (mass/volume) NORMAL NORMAL Urine leukocyte esterase detection by dipstick NEGATIVE NEGATIVE Automated urine sediment erythrocyte count by microscopy (number/high power field) NONE NRG Automated urine sediment leukocyte count by microscopy (number/high power field ) [HPF] NRG Bacteria detection in urine sediment by light microscopy NEGATIVE NRG Squamous epithelial cells detection in urine sediment by light microscopy 0-2 NRG Crystals detection in urine sediment by light microscopy NONE NRG Casts detection in urine sediment by light microscopy NONE NRG Mucus detection in urine sediment by light microscopy NEGATIVE NRG Complete urinalysis with reflex to culture NO NRG Blood type T Indirect antibody screen panel - 10/02/16 15:45 ABO+Rh group AP NRG Transfusion band number [id number] NRG Blood group antibody screen NEGATIVE NRG Urine drug screening test - 10/02/16 15:45 Urine phencyclidine detection by screening method NEGATIVE NEGATIVE Urine benzodiazepines detection by screening method POSITIVE NEGATIVE Urine cocaine detection NEGATIVE NEGATIVE Urine amphetamines detection by screening method NEGATIVE NEGATIVE Urine methamphetamine detection by screening method NEGATIVE NEGATIVE Urine cannabinoids detection by screening method POSITIVE NEGATIVE Urine opiates detection by screening method NEGATIVE NEGATIVE Urine barbiturates detection NEGATIVE NEGATIVE Screening urine tricyclic antidepressants detection NEGATIVE NEGATIVE Urine methadone detection by screening method NEGATIVE NEGATIVE Urine oxycodone detection NEGATIVE NEGATIVE Urine propoxyphene detection NEGATIVE NEGATIVE Methicillin resistant Staphylococcus aureus (MRSA) screening culture - 08:15 Methicillin resistant Staphylococcus aureus (MRSA) screening culture NEG NRG Encounters ACCT No. Visit Date/Time Discharge Status Pt. Type Provider Facility Loc./Unit Complaint [id number] 12/17/2016 05:41:00 2016 11:08:00 DIS Outpatient BRY ACOSTA MD [facility] PREOP RIGHT BREAST CANCER [id number] 08/07/2016 13:27:00 2016 00:01:00 DIS Outpatient NICOLE AVILA MD [facility] ONC [id number] 10/02/2016 15:13:00 2015 16:51:00 DIS Emergency MILTON QUEEN APRN [facility] ER PASSING BLOOD CLOTS/WEAK [id number] 05/28/2016 10:45:00 2015 00:01:00 DIS Outpatient NICOLE AVILA MD [facility] ONC [id number] 01/15/2016 12:45:00 2015 00:01:00 DIS Outpatient NICOLE AVILA MD [facility] ONC [id number] 08/19/2015 12:58:00 2014 23:59:59 CLS Outpatient KITTYLUPE SAP SECURITY CONSULTANT [facility] LAB CHRONIC HEP C [id number] 06/13/2015 13:43:00 2014 00:01:00 DIS Outpatient NICOLE AVILA MD [facility] ONC [id number] 05/22/2015 09:45:00 2014 15:05:00 DIS Outpatient BIRDIE SANTANA MD [facility] SDC TORN MEDIAL MENISCUS W/ CHRONDROMALASIA [id number] 05/20/2015 10:55:00 2014 23:59:59 CLS Outpatient BIRDIE SANTANA MD [facility] PREOP LEFT TORN MEDIAL MESICUS W/ CHRONDROPLASIA [id number] 05/09/2015 14:59:00 2014 00:01:00 DIS Outpatient NICOLE AVILA MD [facility] ONC [id number] 02/15/2015 09:52:00 2014 23:59:59 CLS Outpatient ROBYN CUEVA [facility] LAB HEP C PCR [id number] 01/10/2015 12:57:00 2014 00:01:00 DIS Outpatient NICOLE AVILA MD [facility] ONC [id number] 01/11/2015 09:02:00 2014 23:59:59 CLS Outpatient DEMETRIA URIAS [facility] RAD RT KNEE PAIN [id number] 09/20/2014 09:01:00 2013 00:01:00 DIS Outpatient NICOLE AVILA MD [facility] ONC [id number] 08/27/2014 12:41:00 2013 23:59:59 CLS Outpatient NICOLE AVILA MD [facility] RAD BREAST CA [id number] 05/09/2014 13:19:00 2013 00:01:00 DIS Outpatient NICOLE AVILA MD [facility] ONC [id number] 06/04/2014 12:56:00 2013 14:05:00 DIS Emergency MILTON QUEEN APRN [facility] ER FOOT INJURY [id number] 06/01/2014 21:06:00 2013 21:40:00 DIS Emergency UMANG MCKNIGHT MD [facility] ER L FOOT PAIN [id number] 03/23/2014 06:46:00 2013 12:15:00 DIS Outpatient BRY ACOSTA MD [facility] POOR VENOUS ACCESS [id number] 03/20/2014 07:12:00 2013 23:59:59 CLS Outpatient BRY ACOSTA MD [facility] PREOP POOR VENOUS ACCESS [id number] 02/07/2014 10:04:00 2013 00:01:00 DIS Outpatient NICOLE AVILA MD [facility] ONC [id number] 03/12/2014 08:34:00 2013 11:55:00 [id number] 03/07/2014 07:15:00 2013 23:59:59 CLS Outpatient BRY ACOSTA MD [facility] PREOP SCREENING [id number] 02/05/2014 14:07:00 2013 23:59:59 CLS Outpatient NICOLE AVILA MD [facility] RAD CA BREAST [id number] 11/01/2013 13:51:00 2013 00:01:00 DIS Outpatient NICOLE AVILA MD [facility] ONC [id number] 09/28/2013 16:35:00 2012 20:05:00 DIS Emergency MILTON QUEEN APRN [facility] ER VOMITING,DIARRHEA [id number] 08/26/2013 09:50:00 2012 10:59:00 DIS Emergency ERIKA DERAS MD [facility] ER DRAINAGE FROM INCISION ON R BREAST [id number] 08/15/2013 06:53:00 2012 16:40:00 DIS Outpatient BRY ACOSTA MD [facility] RIGHT BREAST CANCER [id number] 08/11/2013 07:55:00 2012 23:59:59 CLS Outpatient BRY ACOSTA MD [facility] PREOP RIGHT BREAST CANCER [id number] 08/01/2013 08:43:00 2012 23:59:59 CLS Outpatient BRY ACOSTA MD [facility] RAD RT BREAST LUMP [id number] 07/12/2013 14:04:00 2012 23:59:59 CLS Outpatient HANS GUERIN SAP SECURITY CONSULTANT [facility] RAD LUMP IN BREAST [id number] 07/06/2013 16:20:00 2012 23:59:59 CLS Preadmit ERIKA DERAS MD [facility] ER NECK,HEAD PAIN [id number] 03/10/2013 14:05:00 2012 23:59:59 CLS Outpatient LILIANE BASILIO SAP SECURITY CONSULTANT [facility] RAD PAIN IN SHOULDER [id number] 02/25/2013 17:31:00 2012 21:46:00 DIS Emergency DEMETRIA KEYS MD [facility] ER L ARM NUMBNESS [id number] 02/14/2013 21:39:00 2012 23:20:00 DIS Emergency DEANNE CASTELLANOS DO K [facility] ER SHOULDER PAIN [id number] 12/23/2016 10:00:00 PEN Preadmit BRY ACOSTA MD [facility] RIGHT BREAST CANCER [id number] 12/07/2016 14:49:00 ACT Outpatient NICOLE AVILA MD [facility] ONC [id number] 11/26/2015 10:38:00 ACT Outpatient LUPE TANG SAP SECURITY CONSULTANT [facility] LAB [id number] 10/17/2015 11:02:00 ACT Outpatient NICOLE AVILA MD [facility] RAD SCREENING [id number] 10/14/2015 13:28:00 ACT Outpatient NICOLE AVILA MD [facility] ONC [id number] 01/22/2013 23:11:00 Document Registration [id number] 10/04/2012 11:57:00 Document Registration [id number] 05/13/2012 11:57:00 Document Registration [id number] 11/20/2011 09:00:00 Document Registration [id number] 08/02/2011 16:35:00 Document Registration [id number] 07/29/2011 10:07:00 Document Registration [id number] 12/28/2010 12:53:00 Document Registration
== END 2016-12-23 10:40 | disposition home or self-care (01) ==
LOC: DELPENDDIS → SDC 07:51
PROVIDERS: ATTEND Surgery
DX: C50.911 Malignant neoplasm of unspecified site of right female breast (principal); Z11.2 Encounter for screening for other bacterial diseases; F17.210 Nicotine dependence, cigarettes, uncomplicated; F41.9 Anxiety disorder, unspecified; F32.9 Major depressive disorder, single episode, unspecified
CPT/HCPCS: 87081

== ENCOUNTER → 2017-09-06 | Outpatient (CLI) | payer OTHER ==
[~2017-09-06] MED LIST changes: +TRAM50TA2 PO
--- NOTE | 2017-09-06 22:38 | Diagnostic Imaging Report ---
EXAM: Bilateral diagnostic mammogram. INDICATION: History of breast cancer. Left breast discharge. Right breast pain. COMPARISON: 10/17/2015. FINDINGS: The breasts are composed of heterogeneously dense parenchyma which may decrease mammographic sensitivity. Benign-appearing calcifications are seen in the central aspect of the right breast. There is no mass, architectural distortion or suspicious calcification noted. Some nodularity of the fibroglandular tissues in the left breast is again noted similar to prior exams. Impression: Stable mammographic findings with no suspicious focal lesion. Ultrasound evaluation pending. BI-RADS 0. ACR BI-RADS Category 0: Incomplete. (Needs additional imaging evaluation). Result letter will be mailed to the patient. Note: At least 10% of breast cancer is not imaged by mammography. Dictated by: Dictated on workstation # [id number]
--- NOTE | 2017-09-06 22:45 | Diagnostic Imaging Report ---
EXAM: Bilateral breast ultrasound. INDICATION: History of right breast cancer. There is right breast discharge and left breast pain. Four-quadrant retroareolar areas of each breast were scanned. FINDINGS: In the right breast at 2 o'clock zone at the lumpectomy site, there is an area of significant shadowing and suggestion of calcification which appears to match a benign-appearing dystrophic type calcification seen at the lumpectomy site on mammography. No internal vascularity is demonstrated with carotid Doppler in this region. No suspicious mass is seen otherwise. The left breast demonstrates no underlying lesion. IMPRESSION: Calcifications and scarring suggested at 2 o'clock zone in the right breast at the lumpectomy site compatible with scarring. BI-RADS 2. Dictated by: Dictated on workstation # [id number]
== END ==
LOC: RAD 07:39
PROVIDERS: ATTEND Nurse Practitioner Family
DX: R92.1 Mammographic calcification found on diagnostic imaging of breast (principal); N64.52 Nipple discharge; N64.4 Mastodynia; Z90.11 Acquired absence of right breast and nipple
CPT/HCPCS: 77066

== ENCOUNTER 2019-02-21 18:52 | Emergency (ER) | payer OTHER ==
[~2019-02-21] VITALS: Ht 167.6 cm; Wt 85.3 kg
[2019-02-21] MEDS ORDERED: ANTACID SUSP 30 ML UDC (MYLANTA) PO ONE ×2 (19:15→20:45)
[2019-02-21] MEDS ORDERED: LACTATED RINGERS 1,000 ML IV ONE (19:15)
[2019-02-21] MEDS ORDERED: LIDOCAINE 2% VISCOUS 15 ML UDC PO ONE ×2 (19:15→20:45)
[2019-02-21] MEDS ORDERED: ONDANSETRON 4 MG/2 ML (SDV) Z0FRAN IVP ONE (19:15)
[2019-02-21 19:22] LABS: BASOPHILS % (AUTO) 0 % (0-10); EOSINOPHILS # (AUTO) 0.1 10^3/uL (0.0-0.3); EOSINOPHILS % (AUTO) 1 % (0-10); HEMATOCRIT 41 % (35-52); HEMOGLOBIN 14.4 G/DL (11.5-16.0); LYMPHOCYTES # (AUTO) 2.3 X 10^3 (1.0-4.0); LYMPHOCYTES % (AUTO) 23 % (12-44); MEAN CORPUSCULAR HEMOGLOBIN 30 PG (25-34); MEAN CORPUSCULAR HGB CONC 35 G/DL (32-36); MEAN CORPUSCULAR VOLUME 85 FL (80-99); MEAN PLATELET VOLUME 10.1 FL (7.4-10.4); MONOCYTES % (AUTO) 10 % (0-12); NEUTROPHILS # (AUTO) 6.4 X 10^3 (1.8-7.8); NEUTROPHILS % (AUTO) 65 % (42-75); PLATELET COUNT 368 10^3/uL (130-400); RED CELL DISTRIBUTION WIDTH 13.6 % (10.0-14.5); WHITE BLOOD COUNT 9.8 10^3/uL (4.3-11.0)
--- NOTE | 2019-02-21 19:24 | ED General ---
General Chief Complaint: General Problems/Pain Stated Complaint: BURNING IN STOMACH/CHEST, VOMITING Nursing Triage Note: PT REPORTS EPIGASTRIC PAIN WITH FOAMING VOMIT. PT REPORTS BURNING IN STOMACH. REPORTS THAT DRINKING AND EATING MAKES THIS PAIN WORSE. PT HAS DECREASED APPETITE AND LOOSE STOOLS. Nursing Sepsis Screen: No Definite Risk Source of Information: Patient, Family Exam Limitations: No Limitations History of Present Illness Date Seen by Provider: February 21, 2019 Time Seen by Provider: 19:23 Initial Comments To ER with intermittent epigastric abdominal pain worsened by food, loose yellowish-colored stools, burning sensation in her stomach/lower chest. Present for about 2 days. Timing/Duration: 1-2 Days Severity: Moderate Associated Systoms: No Cough, No Diaphoresis; Nausea/Vomiting Allergies and Home Medications Allergies Coded Allergies: morphine (Unverified Allergy, Severe, LARGE HIVES ON LEFT FOREARM. ITCHING OF NOSE., 02/21/19) IV MORPHINE WAS GIVEN TO PATIENT FOR PAIN AT IV SITE IN PTS LEFT HAND. 12 MINUTES AFTER IV MORPHINE WAS GIVEN PT C/O HER NOSE ITCHING. THIS RN NOTICED PT HAD REDNESS AT IV SITE AND HAD 5 LARGE HIVES ON LEFT FOREARM. PT DENIED ANY SHORTNESS OF BREATH OR DIFFICULTY BREATHING. NO HIVES OR RASH NOTED ANY WHERE ELSE ON PTS BODY. NO ITCHING NOTED ANYWHERE ELSE BUT PTS NOSE. THIS RN NOTIFIED ANESTHESIA. 25MG BENADRYL GIVEN PO PER ANESTHESIA'S ORDERS DUE TO PTS IV INFILTRATING AND ANESTHESIA WAS UNABLE TO RESTART IV. 10 MINUTES AFTER PO BENADRYL WAS GIVEN PTS HIVES WERE ABOUT GONE AND PTS STATED HER NOSE DID NOT ITCH. codeine (Verified Allergy, Mild, 02/21/19) VOMITING Home Medications Tamoxifen Citrate 20 Mg Tablet, 20 MG PO DAILY, (Reported) Tramadol HCl 50 Mg Tablet, 50 MG PO Q12H PRN for PAIN Prescribed by: BRY ACOSTA on 12/23/16 2515 Patient Home Medication List Home Medication List Reviewed: Yes Review of Systems Review of Systems Constitutional: see HPI EENTM: see HPI Respiratory: no symptoms reported Cardiovascular: no symptoms reported Genitourinary: no symptoms reported Musculoskeletal: no symptoms reported Skin: no symptoms reported Psychiatric/Neurological: No Symptoms Reported Hematologic/Lymphatic: No Symptoms Reported Past Cmskkzk-[id number]-[id number] Hx Patient Social History Alcohol Use: Denies Use Recreational Drug Use: Yes Drug of Choice: MARIJUANA Smoking Status: Current Everyday Smoker Type Used: Cigarettes Recent Foreign Travel: No Contact w/Someone Who Travel: No Recent Infectious Disease Expo: No Recent Hopitalizations: No Physical Abuse: No Sexual Abuse: No Immunizations Up To Date Date of Pneumonia Vaccine: Oct 04, 2010 Date of Influenza Vaccine: Jul 04, 2011 Seasonal Allergies Seasonal Allergies: Yes Past Medical History Surgeries: Yes (RIGHT BREAST LUMPECTOMY, RIGHT KNEE SCOPE, port) Breast, Hysterectomy, Lumpectomy Respiratory: Yes Chronic Bronchitis Cardiac: No Neurological: No Reproductive Disorders: No Female 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 Sexually Transmitted Disease: Yes (HPV) HIV/AIDS: No Genitourinary: No Gastrointestinal: Yes Gastroesophageal Reflux Musculoskeletal: Yes (NECK) Chronic Back Pain Endocrine: No HEENT: No Loss of Vision: Bilateral Hearing Impairment: Denies Cancer: Yes (HPV) Breast, Uterine Psychosocial: Yes (TAKES XANAX) Anxiety, Depression Integumentary: No Blood Disorders: No Adverse Reaction/Blood Tranf: No Physical Exam Vital Signs Vital Signs - First Documented 02/21/19 18:56 Temp 96.8 Pulse 81 Resp 12 B/P (MAP) 168/114 (132) Pulse Ox 95 Capillary Refill : Less Than 3 Seconds Height, Weight, BMI Height: 5'6.00" Weight: 188lbs. 0.0oz. 85.046658oj; 29.1 BMI Method:Stated General Appearance: No Apparent Distress, WD/WN Eyes: Bilateral Eye Normal Inspection, Bilateral Eye PERRL, Bilateral Eye EOMI Respiratory: No Accessory Muscle Use, No Respiratory Distress Gastrointestinal: Normal Bowel Sounds, Non Tender, Soft; No Tenderness Extremity: Normal Capillary Refill, Normal Inspection Neurologic/Psychiatric: Alert, Oriented x3 Progress/Results/Core Measures Suspected Sepsis Recent Fever Within 48 Hours: No Infection Criteria Present: None New/Unexplained Altered Menta: No Sepsis Screen: No Definite Risk SIRS Temperature:96.8 Pulse: 81 Respiratory Rate: 12 Laboratory Tests 02/21/19 19:13: White Blood Count 9.8 Blood Pressure 168 /114 Mean: 132 Laboratory Tests 02/21/19 19:13: Creatinine 0.70, Platelet Count 368, Total Bilirubin 0.4 Results/Orders Lab Results Laboratory Tests Test 02/21/19 19:13 Range/Units White Blood Count 9.8 4.3-11.0 10^3/uL Red Blood Count 4.83 4.35-5.85 10^6/uL Hemoglobin 14.4 11.5-16.0 G/DL Hematocrit 41 35-52 % Mean Corpuscular Volume 85 80-99 FL Mean Corpuscular Hemoglobin 30 25-34 PG Mean Corpuscular Hemoglobin Concent 35 32-36 G/DL Red Cell Distribution Width 13.6 10.0-14.5 % Platelet Count 368 130-400 10^3/uL Mean Platelet Volume 10.1 7.4-10.4 FL Neutrophils (%) (Auto) 65 42-75 % Lymphocytes (%) (Auto) 23 12-44 % Monocytes (%) (Auto) 10 0-12 % Eosinophils (%) (Auto) 1 0-10 % Basophils (%) (Auto) 0 0-10 % Neutrophils # (Auto) 6.4 1.8-7.8 X 10^3 Lymphocytes # (Auto) 2.3 1.0-4.0 X 10^3 Monocytes # (Auto) 1.0 0.0-1.0 X 10^3 Eosinophils # (Auto) 0.1 0.0-0.3 10^3/uL Basophils # (Auto) 0.0 0.0-0.1 10^3/uL Sodium Level 138 135-145 MMOL/L Potassium Level 4.4 3.6-5.0 MMOL/L Chloride Level 109 H 98-107 MMOL/L Carbon Dioxide Level 18 L 21-32 MMOL/L Anion Gap 11 5-14 MMOL/L Blood Urea Nitrogen 7 7-18 MG/DL Creatinine 0.70 0.60-1.30 MG/DL Estimat Glomerular Filtration Rate > 60 BUN/Creatinine Ratio 10 Glucose Level 98 70-105 MG/DL Calcium Level 10.1 8.5-10.1 MG/DL Corrected Calcium 9.9 8.5-10.1 MG/DL Total Bilirubin 0.4 0.1-1.0 MG/DL Aspartate Amino Transf (AST/SGOT) 19 5-34 U/L Alanine Aminotransferase (ALT/SGPT) 23 0-55 U/L Alkaline Phosphatase 68 40-136 U/L Troponin I < 0.028 <0.028 NG/ML Total Protein 7.4 6.4-8.2 GM/DL Albumin 4.2 3.2-4.5 GM/DL Lipase 55 8-78 U/L My Orders Orders - MILTON QUEEN BIOLOGY INTERN Cbc With Automated Diff (02/21/19 19:08) Comprehensive Metabolic Panel (02/21/19 19:08) Lipase (02/21/19 19:08) Ua Culture If Indicated (02/21/19 19:08) Ed Iv/Invasive Line Start (02/21/19 19:08) Ondansetron Injection (Zofran Injectio (02/21/19 19:15) Antacid Suspension (Mylanta Suspension (02/21/19 19:15) Lidocaine 2% Viscous 15 Ml (Xylocaine Vi (02/21/19 19:15) Ekg Tracing (02/21/19 19:14) Troponin I (02/21/19 19:14) Lactated Ringers (Lr 1000 Ml Iv Solution (02/21/19 19:30) Lactated Ringers (Lr 1000 Ml Iv Solution (02/21/19 19:15) Medications Given in ED Current Medications Medications Dose Ordered Sig/Giovanna Route Start Time Stop Time Status Last Admin Dose Admin Al Hydrox/Mg Hydrox/Simethicone 30 ml ONCE ONCE PO 02/21/19 19:15 02/21/19 19:16 DC 02/21/19 19:22 30 ML Lidocaine HCl 10 ml ONCE ONCE PO 02/21/19 19:15 02/21/19 19:16 DC 02/21/19 19:22 10 ML Ondansetron HCl 4 mg ONCE ONCE IVP 02/21/19 19:15 02/21/19 19:16 DC 02/21/19 19:22 4 MG Vital Signs/I&O 02/21/19 18:56 Temp 96.8 Pulse 81 Resp 12 B/P (MAP) 168/114 (132) Pulse Ox 95 Capillary Refill : Less Than 3 Seconds Blood Pressure Mean: 132 Departure Communication (Admissions) 1954-pain is much better after the GI cocktail. Impression Primary Impression: Gastritis Qualified Codes: K29.00 - Acute gastritis without bleeding Disposition: HOME, SELF-CARE Condition: Stable Departure-Patient Inst. Decision time for Depature: 19:54 Referrals: NO,LOCAL PHYSICIAN (PCP/Family) Primary Care Physician Patient Instructions: Gastritis Add. Discharge Instructions: 1. Clear liquid diet for the next 24 hours 2. Kowp-ald-ecwfskn Maalox as needed for pain control in addition to the acid reducers prescribed. Follow-up with primary care for reevaluation later this week or next week. All discharge instructions reviewed with patient and/or kartik henao. Voiced understanding. Scripts Pantoprazole Sodium (Protonix) 40 Mg Tablet. 40 MG PO DAILY, #30 TAB Prov: MILTON QUEEN APRN 02/21/19 MILTON QUEEN APRN February 21, 2019 19:24
[2019-02-21] MEDS ORDERED: LACTATED RINGERS 1,000 ML IV SCH (19:30)
[2019-02-21 19:39] LABS: ALANINE AMINOTRANSFERASE 23 U/L (0-55); ALBUMIN 4.2 GM/DL (3.2-4.5); ALKALINE PHOSPHATASE 68 U/L (40-136); BILIRUBIN,TOTAL 0.4 MG/DL (0.1-1.0); BUN/CREATININE RATIO 10; CALCIUM 10.1 MG/DL (8.5-10.1); CARBON DIOXIDE 18 MMOL/L (21-32); CHLORIDE 109 MMOL/L (98-107); GFR ESTIMATED > 60; GLUCOSE 98 MG/DL (70-105); LIPASE 55 U/L (8-78); POTASSIUM 4.4 MMOL/L (3.6-5.0); SODIUM 138 MMOL/L (135-145); TOTAL PROTEIN 7.4 GM/DL (6.4-8.2)
[2019-02-21] MEDS ORDERED: PANT40TA2 PO (19:55)
[2019-02-21 20:00] LABS: BILIRUBIN,URINE NEGATIVE (NEGATIVE); CLARITY,URINE CLEAR; COLOR,URINE YELLOW; GLUCOSE, URINE (UA) NEGATIVE (NEGATIVE); KETONES,URINE NEGATIVE (NEGATIVE); LEUKOCYTE ESTERASE ,URINE NEGATIVE (NEGATIVE); NITRITE,URINE NEGATIVE (NEGATIVE); PH,URINE 6 (5-9); PROTEIN,URINE NEGATIVE (NEGATIVE); UROBILINOGEN,URINE NORMAL (NORMAL)
[2019-02-21 20:14] LABS: RBC,URINE 0-2 /HPF
[2019-02-21 20:15] LABS: BACTERIA,URINE TRACE /HPF; WBC,URINE RARE /HPF
[2019-02-21 20:36] VITALS: BP 168/114
== END 2019-02-21 20:36 | disposition home or self-care (01) ==
LOC: EDUNIT# 18:52 → ER 18:53
DX: K29.70 Gastritis, unspecified, without bleeding (principal); K21.9 Gastro-esophageal reflux disease without esophagitis; F41.9 Anxiety disorder, unspecified; F32.9 Major depressive disorder, single episode, unspecified; F12.10 Cannabis abuse, uncomplicated; F17.210 Nicotine dependence, cigarettes, uncomplicated; Z88.5 Allergy status to narcotic agent; Z90.11 Acquired absence of right breast and nipple; Z90.710 Acquired absence of both cervix and uterus; Z86.19 Personal history of other infectious and parasitic diseases; Z85.3 Personal history of malignant neoplasm of breast; Z85.42 Personal history of malignant neoplasm of other parts of uterus; Z87.09 Personal history of other diseases of the respiratory system
CPT/HCPCS: 36415; 80053; 81000; 83690; 84484; 85025; 93005

== ENCOUNTER 2021-04-13 13:59 | Emergency (ER) | payer SELFPAY ==
[~2021-04-13] VITALS: Ht 167 cm; Wt 72.0 kg
[~2021-04-13 13:59] MED LIST changes: -OXYC-471 PO; +OXYC1TAB11 PO; +PANT40TA2 PO; -TRAM50TA2 PO; +TRM50T PO
[2021-04-13 14:45] VITALS: BP 127/91
--- NOTE | 2021-04-13 14:54 | ED General ---
General Stated Complaint: VOMITING/DIARRHEA/FEVER Source of Information: Patient Exam Limitations: No Limitations History of Present Illness Date Seen by Provider: Apr 13, 2021 Time Seen by Provider: 14:54 Initial Comments To ER with nausea vomiting diarrhea. Symptoms present for 3 days, feeling better today actually. She had the [employer] vaccine but was exposed to someone with Covid on 04/05/21. Allergies and Home Medications Allergies Coded Allergies: morphine (Unverified Allergy, Severe, LARGE HIVES ON LEFT FOREARM. ITCHING OF NOSE., 02/21/19) IV MORPHINE WAS GIVEN TO PATIENT FOR PAIN AT IV SITE IN PTS LEFT HAND. 12 MINUTES AFTER IV MORPHINE WAS GIVEN PT C/O HER NOSE ITCHING. THIS RN NOTICED PT HAD REDNESS AT IV SITE AND HAD 5 LARGE HIVES ON LEFT FOREARM. PT DENIED ANY SHORTNESS OF BREATH OR DIFFICULTY BREATHING. NO HIVES OR RASH NOTED ANY WHERE ELSE ON PTS BODY. NO ITCHING NOTED ANYWHERE ELSE BUT PTS NOSE. THIS RN NOTIFIED ANESTHESIA. 25MG BENADRYL GIVEN PO PER ANESTHESIA'S ORDERS DUE TO PTS IV INFILTRATING AND ANESTHESIA WAS UNABLE TO RESTART IV. 10 MINUTES AFTER PO BENADRYL WAS GIVEN PTS HIVES WERE ABOUT GONE AND PTS STATED HER NOSE DID NOT ITCH. codeine (Verified Allergy, Mild, 02/21/19) VOMITING Home Medications Pantoprazole Sodium 40 Mg Tablet.dr, 40 MG PO DAILY Prescribed by: MILTON QUEEN on 02/21/191954 Tamoxifen Citrate 20 Mg Tablet, 20 MG PO DAILY, (Reported) Tramadol HCl 50 Mg Tablet, 50 MG PO Q12H PRN for PAIN Prescribed by: BRY ACOSTA on 12/23/16 0945 Patient Home Medication List Home Medication List Reviewed: Yes Review of Systems Review of Systems Constitutional: see HPI EENTM: see HPI Respiratory: no symptoms reported Cardiovascular: no symptoms reported Gastrointestinal: diarrhea, nausea Genitourinary: no symptoms reported Musculoskeletal: no symptoms reported Skin: no symptoms reported Psychiatric/Neurological: No Symptoms Reported Hematologic/Lymphatic: No Symptoms Reported Immunological/Allergic: no symptoms reported Past Vozzksr-Xzlsyz-Pypjlg Hx Seasonal Allergies Seasonal Allergies: Yes Past Medical History Surgeries: Yes (RIGHT BREAST LUMPECTOMY, RIGHT KNEE SCOPE, port) Breast, Hysterectomy, Lumpectomy Respiratory: Yes Chronic Bronchitis Cardiac: No Neurological: No Reproductive Disorders: No 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 Sexually Transmitted Disease: Yes (HPV) HIV/AIDS: No Genitourinary: No Gastrointestinal: Yes Gastroesophageal Reflux Musculoskeletal: Yes (NECK) Chronic Back Pain Endocrine: No HEENT: No Loss of Vision: Bilateral Hearing Impairment: Denies Cancer: Yes (HPV) Breast, Uterine Psychosocial: Yes (TAKES XANAX) Anxiety, Depression Integumentary: No Blood Disorders: No Adverse Reaction/Blood Tranf: No Physical Exam Vital Signs Vital Signs - First Documented 04/13/21 14:45 Temp 36.8 Pulse 70 Resp 20 B/P (MAP) 127/91 (103) Pulse Ox 98 O2 Delivery Room Air Capillary Refill : Height, Weight, BMI Height: 5'6.00" Weight: 188lbs. 0.0oz. 85.178412mi; 29.1 BMI Method:Stated General Appearance: No Apparent Distress, WD/WN Eyes: Bilateral Eye Normal Inspection, Bilateral Eye PERRL, Bilateral Eye EOMI Neck: Full Range of Motion, Normal Inspection Respiratory: No Accessory Muscle Use, No Respiratory Distress Cardiovascular: Regular Rate, Rhythm, Normal Peripheral Pulses Gastrointestinal: Normal Bowel Sounds, Non Tender, Soft Extremity: Normal Capillary Refill, Normal Inspection Neurologic/Psychiatric: Alert, Oriented x3 Skin: Normal Color, Warm/Dry Progress/Results/Core Measures Suspected Sepsis SIRS Temperature: Pulse: Respiratory Rate: Blood Pressure / Mean: Results/Orders Lab Results Laboratory Tests Test 04/13/21 14:10 Range/Units Influenza Type A (RT-PCR) Not Detected Not Detecte Influenza Type B (RT-PCR) Not Detected Not Detecte SARS-CoV-2 RNA (RT-PCR) Not Detected Not Detecte My Orders Orders - MILTON QUEEN APRN Covid 19 Inhouse Test (04/13/21 14:09) Influenza A And B By Pcr (04/13/21 14:09) Vital Signs/I&O 04/13/21 04/13/21 14:45 14:45 Temp 36.8 Pulse 70 Resp 20 B/P (MAP) 127/91 (103) Pulse Ox 98 O2 Delivery Room Air Capillary Refill : Departure Impression Primary Impression: Diarrhea Disposition: 01 HOME, SELF-CARE Condition: Stable Departure-Patient Inst. Decision time for Depature: 15:05 Referrals: NO,LOCAL PHYSICIAN (PCP/Family) Primary Care Physician Patient Instructions: VIRAL [employer]NDR[employer] MILTON QUEEN APRN Apr 13, 2021 14:54
== END 2021-04-13 15:16 | disposition home or self-care (01) ==
LOC: EDUNIT# 13:59 → ER 14:01
DX: R19.7 Diarrhea, unspecified (principal); K21.9 Gastro-esophageal reflux disease without esophagitis; Z20.822 Contact with and (suspected) exposure to COVID-19; Z79.899 Other long term (current) drug therapy
CPT/HCPCS: 87636; 99282